=== PATIENT | male | born 1960 | race Caucasian/White ===

== ENCOUNTER 2016-11-25 12:45 | Inpatient (IN) ==
--- NOTE | 2016-11-25 12:50 | Emergency Department Note ---
Disposition Clinical Impression: Thrombocythemia, Cirrhosis, Ascites, Peripheral edema, COPD (chronic obstructive pulmonary disease), Hypoxemia, Diabetes, Hyperkalemia, Tachycardia Disposition: Admitted As Inpatient Referrals: Frank Jeong CNP [Primary Care Provider] - Forms: ED Satisfaction Letter General Adult HPI - General Chief complaint: ED Shortness of Breath/Dyspnea Stated complaint: " Low oxygen" Time Seen by Provider: 11/25/16 12:48 - History of Present Illness HPI Narrative: 66-year-old male with a history of COPD and a 3 L home oxygen requirement presents to the ED from outpatient testing, he was scheduled for a paracentesis but they realized his oxygen saturation was 76% so they sent him to the ED. The patient has a history of type 1 diabetes COPD as well as liver failure. He was going to undergo his first paracentesis today. The patient describes increasing dyspnea over the last few days. No chest pain or coughing of blood he is not anticoagulated. He has had lower extremity edema as well as abdominal swelling. There is no history of lilia abdominal pain. No fever. No difficulty moving the arms or legs independently. Bilateral lower extremity edema as described. There is no history of confusion no unilateral arm or leg weakness or numbness. No history of acute back pain. Low oxygen saturations with generalized swelling is reported as noted. - Related Data Home Medications Medication Instructions Recorded Confirmed Omeprazole 20 mg PO DAILY 11/13/15 11/25/16 metFORMIN [Glucophage] 1,000 mg PO BIDWM 01/02/16 11/25/16 Albuterol Sulfate [Ventolin Hfa] 1 puff IH Q4-6H PRN 10/17/16 11/25/16 Clotrimazole/Betameth Dip CRM 1 appl TP BID PRN 10/17/16 11/25/16 [Lotrisone CRM] Furosemide [Lasix] 40 mg PO DAILY 10/17/16 11/25/16 Metoprolol Succinate 100 mg PO DAILY 10/17/16 11/25/16 Budesonide/Formoterol 160/4.5 2 puff IH BIDR 11/25/16 11/25/16 [Symbicort 160/4.5] Gabapentin [Neurontin] 300 mg PO TID 11/25/16 11/25/16 Oxygen 3 l .ROUTE CONT 06/23/17 06/23/17 Previous Rx's Medication Instructions Recorded Aspirin 81 mg PO DAILY tab.chew 10/16/15 Spironolactone [Aldactone] 50 mg PO DAILY #30 tablet 01/12/16 DiphenhydraMINE [Benadryl] 1 tab PO HS PRN #20 capsule 02/03/16 Hydrocortisone Acetate 1 appl TP TID PRN #28 gm 02/18/16 [Hydrocortisone] Allergies Allergy/AdvReac Type Severity Reaction Status Date / Time No Known Allergies Allergy Verified 10/17/16 15:02 All systems ED: reviewed and negative except as stated. Past Medical History - Past Medical History Medical history: Reports: cirrhosis, CHF, diabetes, hypertension Surgical history: Reports: other Psychiatric history: Reports: no psych history - Social History Smoking Status: Current every day smoker Smokeless Tobacco Status: No Alcohol use: Reports: none Drug use: Reports: none Physical Exam - General Limitations: no limitations General appearance: alert, in no apparent distress - Head Head exam: atraumatic, normocephalic, normal inspection - Eye Eye exam: Present: normal appearance, PERRL, EOMI. Absent: scleral icterus, conjunctival injection, nystagmus, miosis, mydriasis, periorbital swelling - ENT ENT exam: normal exam, normal oropharynx, mucous membranes moist, TM's normal bilaterally, normal external ear exam - Neck Neck exam: Present: normal inspection, full ROM, trachea midline. Absent: tenderness - Chest Chest inspection: Present: normal inspection, symmetric chest wall rise. Absent : tenderness - Respiratory Respiratory exam: Present: prolonged expiratory phase. Absent: normal lung sounds bilaterally, respiratory distress, wheezes, accessory muscle use - Cardiovascular Cardiovascular exam: Present: regular rate, normal rhythm, normal heart sounds - Abdominal Exam Abdominal exam: Present: distention, normal bowel sounds, ascites, other ( Diffuse erythema over the abdomen. A crepitance or blistering.). Absent: guarding, rebound, rigidity, trauma, pulsatile mass - Extremities Exam Extremities exam: Present: normal inspection, full ROM, normal capillary refill , pedal edema, other (Bilateral lower extremity edema and erythema.). Absent: tenderness, calf tenderness - Expanded Lower Extremity Exam Neurovascular/Tendon exam: Present: normal capillary refill. Absent: motor deficit, sensory deficit, tendon deficit, extremity cold to touch, pallor - Back Exam Back exam: Present: normal inspection, full ROM. Absent: tenderness, CVA tenderness (R), CVA tenderness (L), vertebral tenderness - Neurological Exam Neurological exam: Present: alert, oriented X3, CN II-XII intact. Absent: motor sensory deficit - Psychiatric Psychiatric exam: Present: normal affect, normal mood - Skin Skin exam: Present: warm, dry, intact, normal color. Absent: rash, cyanosis, diaphoresis, erythema, pallor, mottled Course Vital Signs Temperature 97.6 F 11/25/16 12:49 Pulse Rate 114 11/25/16 12:49 Respiratory Rate 22 11/25/16 12:49 Blood Pressure 134/88 11/25/16 12:49 O2 Sat by Pulse Oximetry 88 11/25/16 12:49 Temperature 97.6 F 11/25/16 12:49 Pulse Rate 111 11/25/16 14:12 Respiratory Rate 22 11/25/16 14:12 Blood Pressure 141/96 11/25/16 14:12 O2 Sat by Pulse Oximetry 91 11/25/16 14:12 Oxygen Delivery Oxygen Delivery Nasal Cannula Medical Decision Making - MDM Narrative Medical decision making narrative: The patient has a 3 L oxygen requirement at home secondary to COPD. His oxygen saturations in the outpatient setting were 76%. He was given a DuoNeb here in the ED as well as Solu-Medrol. Nitropaste and Lasix were also ordered. The patient was initially tachycardic. He seems to have significant edema probably secondary to ascites. No evidence of lilia pleural effusion. The patient does have erythema of the lower extremities and abdominal wall probably secondary to chronic skin inflammation versus overt cellulitis. His white count is normal his lactic acid is negative. CRP slightly elevated. Blood cultures were sent. Oxygen supplied in the ED. The interventional radiologist was aware of the patient's condition from the outpatient center and came to the ED and evaluated the patient for ascites, they did not perform paracentesis in the ER. The patient was placed on oxygen by mask in the ED 6 L. He was able to maintain oxygen saturations above 90. Did not appear to be in respiratory distress. He remained persistently tachycardic. As a precaution, Levaquin was given. Blood cultures were sent. Given the patient's significant hypoxemia and multiple comorbidities including COPD, cirrhosis, and CHF, I thought it be appropriate to admit the patient to the hospital. I discussed case with the hospitalist on- call who has accepted the patient to their care. We reviewed the case and both feel that a CTA of the chest as well as CT abdomen would be reasonable to evaluate for acute pulmonary or vascular pathology, or intra-abdominal pathology. The patient's skin is somewhat erythematous on the abdomen and legs. This is likely inflammatory skin change versus cellulitis because it is bilateral. The patient's skin color changes have been present for about a month per his female dev technical mgr. The patient is pending admission. - Lab Data Lab results reviewed: Yes I reviewed the patient's lab results. Result diagrams: 11/25/16 13:20 11/25/16 13:20 Lab Results 11/25/16 11/25/16 11/25/16 Range/Units 12:57 13:20 13:20 WBC 6.9 (4.3-11.1) K/mcL RBC 7.56 H (4.19-5.50) M/mcL Hgb 17.6 H (12.9-16.9) g/dL Hct 66.3 H (37.5-50.1) % MCV 87.7 (83.0-100.0) fL MCH 23.3 L (28.0-33.3) pg MCHC 26.5 L (31.6-35.5) g/dL RDW 22.9 H (11.5-14.5) % Plt Count 140 (140-400) K/mcL MPV 10.1 (9.4-12.4) fL Immature Gran % 0.4 (0-4) % Seg Neutrophils % 66.4 % Lymphocytes % 17.0 % Monocytes % 13.8 % Eosinophils % 1.4 % Basophils % 1.0 % Neutrophils # 4.6 (1.6-8.9) K/mcL Lymphocytes # 1.2 (0.6-4.6) K/mcL Monocytes # 1.0 (0.0-1.3) K/mcL Eosinophils # 0.1 (0.0-0.6) K/mcL Basophils # 0.1 (0.0-0.2) K/mcL Platelet Estimate Normal (Normal) Polychromasia 1+ A (Not Present) Hypochromasia Present A (Not Present) Anisocytosis 2+ A (Not Present) PT (9.4-12.1) Seconds INR APTT (26.0-36.0) Seconds Sodium 136 (136-145) mEq/L Potassium 5.4 H (3.5-4.5) mEq/L Chloride 97 L (98-109) mEq/L Carbon Dioxide 25 (19-29) mEq/L BUN 15 (8-26) mg/dL Creatinine 1.01 (0.72-1.25) mg/dL Est GFR ( Amer) > 60 (> 60) Est GFR (Non-Af Amer) > 60 (> 60) BUN/Creatinine Ratio 15 (6-26) Glucose 84 (70-99) mg/dL POC Glucose 83 (58-89) Calculated Osmolality 282 (280-300) Lactic Acid (0.5-2.2) mmol/L Calcium 8.9 (8.6-10.8) mg/dL Total Bilirubin 1.4 H (0.2-1.2) mg/dL Direct Bilirubin 0.8 H (0.0-0.5) mg/dL Indirect Bilirubin 0.6 (0.0-1.2) mg/dL AST 17 (5-34) Units/L ALT 6 (0-55) Units/L Alkaline Phosphatase 92 (38-126) Units/L Troponin I (0-0.03) ng/mL C-Reactive Protein 29 H (Less than 5) mg/L Serum Total Protein 7.1 (6.0-8.3) g/dL Albumin 3.3 L (3.5-5.0) g/dL Globulin 3.8 H (2.4-3.5) g/dL Albumin/Globulin Ratio 0.9 L (1.1-2.2) Lipase 36 (8-78) Units/L Beta-Hydroxybutyric Acd (0.02-0.27) mmol/L Urine Color (Yellow) Urine Clarity (Clear) Urine pH (5.0-8.0) pH Units Ur Specific Butler (1.010-1.025) Urine Protein (Neg-Trace) mg/dL Urine Glucose (UA) (Normal) mg/dL Urine Ketones (Negative) mg/dL Urine Blood (Negative) Urine Nitrite (Negative) Urine Bilirubin (Negative) Urine Urobilinogen (Normal) mg/dL Ur Leukocyte Esterase (Negative) Urine Microscopic RBC (0-3) per hpf Urine Microscopic WBC (0-3) per hpf Ur Squamous Epith Cells (None-Few) per lpf Urine Bacteria (None-Few) per hpf Hyaline Casts (None-Few) per lpf Ur Culture Indicated? (NO) 11/25/16 11/25/16 11/25/16 Range/Units 13:20 13:20 13:20 WBC (4.3-11.1) K/mcL RBC (4.19-5.50) M/mcL Hgb (12.9-16.9) g/dL Hct (37.5-50.1) % MCV (83.0-100.0) fL MCH (28.0-33.3) pg MCHC (31.6-35.5) g/dL RDW (11.5-14.5) % Plt Count (140-400) K/mcL MPV (9.4-12.4) fL Immature Gran % (0-4) % Seg Neutrophils % % Lymphocytes % % Monocytes % % Eosinophils % % Basophils % % Neutrophils # (1.6-8.9) K/mcL Lymphocytes # (0.6-4.6) K/mcL Monocytes # (0.0-1.3) K/mcL Eosinophils # (0.0-0.6) K/mcL Basophils # (0.0-0.2) K/mcL Platelet Estimate (Normal) Polychromasia (Not Present) Hypochromasia (Not Present) Anisocytosis (Not Present) PT 13.2 H (9.4-12.1) Seconds INR 1.2 APTT 27.1 (26.0-36.0) Seconds Sodium (136-145) mEq/L Potassium (3.5-4.5) mEq/L Chloride (98-109) mEq/L Carbon Dioxide (19-29) mEq/L BUN (8-26) mg/dL Creatinine (0.72-1.25) mg/dL Est GFR ( Amer) (> 60) Est GFR (Non-Af Amer) (> 60) BUN/Creatinine Ratio (6-26) Glucose (70-99) mg/dL POC Glucose (58-89) Calculated Osmolality (280-300) Lactic Acid 1.1 (0.5-2.2) mmol/L Calcium (8.6-10.8) mg/dL Total Bilirubin (0.2-1.2) mg/dL Direct Bilirubin (0.0-0.5) mg/dL Indirect Bilirubin (0.0-1.2) mg/dL AST (5-34) Units/L ALT (0-55) Units/L Alkaline Phosphatase (38-126) Units/L Troponin I 0.02 (0-0.03) ng/mL C-Reactive Protein (Less than 5) mg/L Serum Total Protein (6.0-8.3) g/dL Albumin (3.5-5.0) g/dL Globulin (2.4-3.5) g/dL Albumin/Globulin Ratio (1.1-2.2) Lipase (8-78) Units/L Beta-Hydroxybutyric Acd (0.02-0.27) mmol/L Urine Color (Yellow) Urine Clarity (Clear) Urine pH (5.0-8.0) pH Units Ur Specific Butler (1.010-1.025) Urine Protein (Neg-Trace) mg/dL Urine Glucose (UA) (Normal) mg/dL Urine Ketones (Negative) mg/dL Urine Blood (Negative) Urine Nitrite (Negative) Urine Bilirubin (Negative) Urine Urobilinogen (Normal) mg/dL Ur Leukocyte Esterase (Negative) Urine Microscopic RBC (0-3) per hpf Urine Microscopic WBC (0-3) per hpf Ur Squamous Epith Cells (None-Few) per lpf Urine Bacteria (None-Few) per hpf Hyaline Casts (None-Few) per lpf Ur Culture Indicated? (NO) 11/25/16 11/25/16 Range/Units 13:20 14:22 WBC (4.3-11.1) K/mcL RBC (4.19-5.50) M/mcL Hgb (12.9-16.9) g/dL Hct (37.5-50.1) % MCV (83.0-100.0) fL MCH (28.0-33.3) pg MCHC (31.6-35.5) g/dL RDW (11.5-14.5) % Plt Count (140-400) K/mcL MPV (9.4-12.4) fL Immature Gran % (0-4) % Seg Neutrophils % % Lymphocytes % % Monocytes % % Eosinophils % % Basophils % % Neutrophils # (1.6-8.9) K/mcL Lymphocytes # (0.6-4.6) K/mcL Monocytes # (0.0-1.3) K/mcL Eosinophils # (0.0-0.6) K/mcL Basophils # (0.0-0.2) K/mcL Platelet Estimate (Normal) Polychromasia (Not Present) Hypochromasia (Not Present) Anisocytosis (Not Present) PT (9.4-12.1) Seconds INR APTT (26.0-36.0) Seconds Sodium (136-145) mEq/L Potassium (3.5-4.5) mEq/L Chloride (98-109) mEq/L Carbon Dioxide (19-29) mEq/L BUN (8-26) mg/dL Creatinine (0.72-1.25) mg/dL Est GFR ( Amer) (> 60) Est GFR (Non-Af Amer) (> 60) BUN/Creatinine Ratio (6-26) Glucose (70-99) mg/dL POC Glucose (58-89) Calculated Osmolality (280-300) Lactic Acid (0.5-2.2) mmol/L Calcium (8.6-10.8) mg/dL Total Bilirubin (0.2-1.2) mg/dL Direct Bilirubin (0.0-0.5) mg/dL Indirect Bilirubin (0.0-1.2) mg/dL AST (5-34) Units/L ALT (0-55) Units/L Alkaline Phosphatase (38-126) Units/L Troponin I (0-0.03) ng/mL C-Reactive Protein (Less than 5) mg/L Serum Total Protein (6.0-8.3) g/dL Albumin (3.5-5.0) g/dL Globulin (2.4-3.5) g/dL Albumin/Globulin Ratio (1.1-2.2) Lipase (8-78) Units/L Beta-Hydroxybutyric Acd 0.31 H (0.02-0.27) mmol/L Urine Color Yellow (Yellow) Urine Clarity Clear (Clear) Urine pH 6.0 (5.0-8.0) pH Units Ur Specific Butler 1.012 (1.010-1.025) Urine Protein 100 H (Neg-Trace) mg/dL Urine Glucose (UA) Normal (Normal) mg/dL Urine Ketones Negative (Negative) mg/dL Urine Blood Negative (Negative) Urine Nitrite Negative (Negative) Urine Bilirubin Negative (Negative) Urine Urobilinogen 2.0 H (Normal) mg/dL Ur Leukocyte Esterase Negative (Negative) Urine Microscopic RBC 0-3 (0-3) per hpf Urine Microscopic WBC 0-3 (0-3) per hpf Ur Squamous Epith Cells None Seen (None-Few) per lpf Urine Bacteria None Seen (None-Few) per hpf Hyaline Casts None Seen (None-Few) per lpf Ur Culture Indicated? NO (NO) - Radiology Data Radiology results reviewed: Yes I reviewed the patient's radiology results.
[2016-11-25] MEDS ORDERED: Furosemide 80 MG in 0.9 % Sodium Chloride 50 ML IVPB ONE (13:09)
[2016-11-25] MEDS ORDERED: methylPREDNISolone 125 MG/2 ML VIAL IVP ONE (13:09)
[2016-11-25] MEDS ORDERED: Ipratropium/Albuterol Neb 3 ML IH ONE (13:09)
[2016-11-25 13:38] LABS: Basophils # 0.1 K/mcL (0.0-0.2); Eosinophils # 0.1 K/mcL (0.0-0.6); Eosinophils % 1.4 %; Hematocrit 66.3 % (37.5-50.1); Hemoglobin 17.6 g/dL (12.9-16.9); Immature Granulocytes % 0.4 % (0-4); Lymphocytes # 1.2 K/mcL (0.6-4.6); Mean Corpuscular HGB Conc 26.5 g/dL (31.6-35.5); Mean Corpuscular Hemoglobin 23.3 pg (28.0-33.3); Mean Corpuscular Volume 87.7 fL (83.0-100.0); Mean Platelet Volume 10.1 fL (9.4-12.4); Monocytes % 13.8 %; Neutrophils # 4.6 K/mcL (1.6-8.9); Platelet Count 140 K/mcL (140-400); Red Blood Count 7.56 M/mcL (4.19-5.50); Red Cell Distribution Width 22.9 % (11.5-14.5); Segmented Neutrophils % 66.4 %
[2016-11-25 13:40] LABS: Anisocytosis 2+ (Not Present); Hypochromasia Present (Not Present); Platelet Estimate Normal (Normal); Polychromasia 1+ (Not Present)
[2016-11-25] MEDS: Nitroglycerin 1 INCH/GM PACKET TP ONE ×2 (13:42→14:29)
[2016-11-25 13:48] LABS: INR 1.2
[2016-11-25 13:49] LABS: Prothrombin Time 13.2 Seconds (9.4-12.1)
[2016-11-25 13:50] LABS: Activated Partial Thrombo Time 27.1 Seconds (26.0-36.0)
[2016-11-25 14:33] LABS: Bilirubin,Urine Negative (Negative); Blood,Urine Negative (Negative); Clarity,Urine Clear (Clear); Color,Urine Yellow (Yellow); Glucose,Urine (UA) Normal (Normal); Ketones,Urine Negative (Negative); Leukocyte Esterase,Urine Negative (Negative); Nitrite,Urine Negative (Negative); Protein,Urine 100 mg/dL (Neg-Trace); Specific Gravity,Urine 1.012 (1.010-1.025)
[2016-11-25 14:39] LABS: Bacteria,Urine None Seen per hpf (None-Few); Hyaline Casts,Urine None Seen per lpf (None-Few); RBC,Urine 0-3 per hpf (0-3); Squamous Epithelial Cell,Urine None Seen per lpf (None-Few); WBC,Urine 0-3 per hpf (0-3)
[2016-11-25 15:34] LABS: Alanine Aminotransferase 6 Units/L (0-55); Albumin 3.3 g/dL (3.5-5.0); Albumin/Globulin Ratio 0.9 (1.1-2.2); Alkaline Phosphatase 92 Units/L (38-126); Aspartate Amino Transferase 17 Units/L (5-34); BUN/Creatinine Ratio 15 (6-26); Bilirubin,Direct 0.8 mg/dL (0.0-0.5); Bilirubin,Indirect 0.6 mg/dL (0.0-1.2); Bilirubin,Total 1.4 mg/dL (0.2-1.2); Blood Urea Nitrogen 15 mg/dL (8-26); C-Reactive Protein 29 mg/L (Less than 5); Calcium 8.9 mg/dL (8.6-10.8); Carbon Dioxide 25 mEq/L (19-29); Chloride 97 mEq/L (98-109); Globulin 3.8 g/dL (2.4-3.5); Glucose 84 mg/dL (70-99); Lipase 36 Units/L (8-78); Osmolality,Calculated 282 (280-300); Potassium 5.4 mEq/L (3.5-4.5); Sodium 136 mEq/L (136-145); Total Protein 7.1 g/dL (6.0-8.3); eGFR For African Americans > 60 (> 60); eGFR For Non-African Americans > 60 (> 60)
--- NOTE | 2016-11-25 16:06 | IR Progress Note ---
<Bebo Villalpando - Last Filed: 11/25/16 16:05> Vital Signs: Vital Signs/O2 Sat, Most Current Temp Pulse Resp BP Pulse Ox 97.6 F 111 22 141/96 91 11/25/16 12:49 11/25/16 14:12 11/25/16 14:12 11/25/16 14:12 11/25/16 14:12 Recent Labs: Lab Results 11/25/16 11/25/16 11/25/16 13:20 13:20 13:20 WBC 6.9 RBC 7.56 H Hgb 17.6 H Hct 66.3 H MCV 87.7 MCH 23.3 L MCHC 26.5 L RDW 22.9 H Plt Count 140 MPV 10.1 Neutrophils # 4.6 Lymphocytes # 1.2 Monocytes # 1.0 Eosinophils # 0.1 Basophils # 0.1 Sodium 136 Potassium 5.4 H Chloride 97 L Carbon Dioxide 25 BUN 15 Creatinine 1.01 Est GFR ( Amer) > 60 Est GFR (Non-Af Amer) > 60 BUN/Creatinine Ratio 15 Glucose 84 Lactic Acid 1.1 Calcium 8.9 Assessment and Plan Scanned with u/s in ED to assess for paracentesis. Very little fluid in RLQ, and perihepatic in location sonographically. Therefore, no para done. Pt to have additional imaging per ER staff, and pt is being admitted. IR will hold off for now. Tong Villalpando MD <Lowell Waite - Last Filed: 11/25/16 17:08> Vital Signs: Vital Signs/O2 Sat, Most Current Temp Pulse Resp BP Pulse Ox 97.6 F 111 22 141/96 91 11/25/16 12:49 11/25/16 14:12 11/25/16 14:12 11/25/16 14:12 11/25/16 14:12 Recent Labs: Lab Results 11/25/16 11/25/16 11/25/16 13:20 13:20 13:20 WBC 6.9 RBC 7.56 H Hgb 17.6 H Hct 66.3 H MCV 87.7 MCH 23.3 L MCHC 26.5 L RDW 22.9 H Plt Count 140 MPV 10.1 Neutrophils # 4.6 Lymphocytes # 1.2 Monocytes # 1.0 Eosinophils # 0.1 Basophils # 0.1 Sodium 136 Potassium 5.4 H Chloride 97 L Carbon Dioxide 25 BUN 15 Creatinine 1.01 Est GFR ( Amer) > 60 Est GFR (Non-Af Amer) > 60 BUN/Creatinine Ratio 15 Glucose 84 Lactic Acid 1.1 Calcium 8.9
[2016-11-25] MEDS ORDERED: Levofloxacin 750 MG/150 ML 750 MG/150 ML BAG IVPB ONE (16:28)
[2016-11-25] MEDS ORDERED: Naloxone 0.4 MG/ML INJ IVP PRN (17:16)
[2016-11-25] MEDS ORDERED: Acetaminophen 325 MG TABLET PO PRN (17:16)
[2016-11-25] MEDS ORDERED: Ipratropium/Albuterol Neb 3 ML IH PRN (17:21)
[2016-11-25] MEDS ORDERED: D5% in Water 1,000 ML IVC PRN (17:26)
[2016-11-25] MEDS ORDERED: *HR* Dextrose 50 % in Water (Syg) 50 ML SYRINGE IVP PRN (17:26)
[2016-11-25] MEDS ORDERED: Dextrose Gel 15 GM PO PRN ×2 (17:26)
[2016-11-25] MEDS ORDERED: NON-FORMULARY MEDICATION 1 EACH EACH (Oxygen [Oxygen] 3 L) SCH (17:30)
--- NOTE | 2016-11-25 17:34 | Internal Med History&Physical ---
Date of Encounter: 11/25/16 Time of Encounter: 17:27 Assessment and Plan (1) COPD (chronic obstructive pulmonary disease) Current visit: Yes Status: Acute Likely COPD exacerbation. Plan: -IV antibiotics: Levofloxacin 750 mg every 24 hours. Blood cultures drawn in the emergency room. -IV steroids: Methyl prednisone 40 mg 3 times a day. - Bronchodilators scheduled dose as well as when necessary. I have spoken in person with the radiologist. Patient does not have pulmonary embolism. He has very little fluid in his abdomen which is unable to aspirate by interventional radiology. Qualifiers: COPD type: unspecified COPD Qualified Code(s): J44.9 - Chronic obstructive pulmonary disease, unspecified (2) Congestive heart failure Current visit: No Status: Acute Likely diastolic heart failure. Last echo: October 2015: Ejection fraction 65%, normal left ventricular size, Plan: IV Lasix 40 mg twice a day. Monitor potassium. Echocardiogram tomorrow. We will cycle troponin. Qualifiers: Congestive heart failure type: unspecified congestive heart failure type Congestive heart failure chronicity: unspecified congestive heart failure chronicity Qualified Code(s): I50.9 - Heart failure, unspecified (3) Cirrhosis Current visit: Yes Status: Acute MELD score: 13 Child-Aquino : B We will continue Lasix 40 mg twice a day. We will hold his Spiriva and Aldactone at this point because patient's potassium is 5.4. We will recheck labs tomorrow morning. History the patient is not previously worked up by liver transplant team/ tree warden, we will get opinion from them. Qualifiers: Hepatic cirrhosis type: unspecified hepatic cirrhosis Ascites presence: with ascites Qualified Code(s): K74.60 - Unspecified cirrhosis of liver (4) Peripheral edema Current visit: Yes Status: Acute Likely secondary to the worsening cirrhosis/heart failure (5) DVT prophylaxis Current visit: Yes Status: Acute heparin Medical decision making: This patient has a moderate to severe risk of worsening in spite of being on appropriate treatment. Patient has a multiple comorbid issues. Patient might need a transfer to tertiary care center if he worsens clinically Internal Medicine - H&P: HPI Chief complaint: SOB Admitted From: Emergency Dept Plans for Post Hospital Care: Home History of present illness: PCP; Frank Jeong Brief PMH: COPD, CHF, DM, Cirrhosis and morbid obesity. History of present illness: 56-year-old gentleman, came to this hospital for a scheduled paracentesis. Noted that patient's oxygen saturation was extremely low. Patient's oxygen saturation in the emergency room was 76% on a Ventimask. Patient was complaining of worsening shortness of breath along with cough and change in his color of the sputum. Patient denies chest pain, dizziness, diarrhea or abdominal pain. Patient was evaluated in the emergency department. Patient denies leg pain but patient has a worsening peripheral edema. There is no history of any weakness or numbness, no history of acute back pain. Course in the emergency room: Patient was evaluated in the emergency room.Basic labs were drawn.Patient underwent CT scan of chest and abdomen and pelvis. Reason for admission: COPD exacerbation, worsening abdominal girth. Family history: No significant family comorbidities Past Med Surg Social Fam HX - Past Medical History Medical history: cirrhosis, CHF, diabetes, hypertension Psychiatric history: no psych history - Past Surgical History Surgical History: other - Social History Smoking Status: Current every day smoker Smokeless Tobacco Status: No Alcohol use: none Drug use: none Internal Medicine - H&P: Meds Aspirin 81 mg PO DAILY tab.chew 10/16/15 [Rx] Omeprazole 20 mg PO DAILY 11/13/15 [History] metFORMIN [Glucophage] 1,000 mg PO BIDWM 01/02/16 [History] Spironolactone [Aldactone] 50 mg PO DAILY #30 tablet 01/12/16 [Rx] DiphenhydraMINE [Benadryl] 1 tab PO HS PRN #20 capsule 02/03/16 [Rx] Hydrocortisone Acetate [Hydrocortisone] 1 appl TP TID PRN #28 gm 02/18/16 [Rx] Albuterol Sulfate [Ventolin Hfa] 1 puff IH Q4-6H PRN 10/17/16 [History] Clotrimazole/Betameth Dip CRM [Lotrisone CRM] 1 appl TP BID PRN 10/17/16 [ History] Furosemide [Lasix] 40 mg PO DAILY 10/17/16 [History] Metoprolol Succinate 100 mg PO DAILY 10/17/16 [History] Budesonide/Formoterol 160/4.5 [Symbicort 160/4.5] 2 puff IH BIDR 11/25/16 [ History] Gabapentin [Neurontin] 300 mg PO TID 11/25/16 [History] Oxygen 3 l .ROUTE CONT 11/25/16 [History] Allergies No Known Allergies Allergy (Verified 10/17/16 15:02) All Systems PM: A 10-system review of systems was performed and is negative for pertinent findings except as documented above in the HPI. - Constitutional Constitutional: no chills, no fever(s), no night sweats - EENT Eyes: no change in vision, no discharge, no pain, no photophobia Ears: no ear discharge, no ear pain, no tinnitus Nose, mouth and throat: dysphagia, no nasal discharge, no neck pain, no sore throat - Cardiovascular Cardiovascular ROS IM: diaphoresis, dyspnea, lightheadedness, palpitations, no chest pain, no syncope - Respiratory Respiratory: wheezing, stridor, change in phlegm color, no cough, no dyspnea, no excessive phlegm production - Gastrointestinal Gastrointestinal: no abdominal pain, no diarrhea, no hematemesis, no hematochezia, no melena, no nausea, no vomiting - Musculoskeletal Musculoskeletal ROS IM: no numbness, no tingling - Integumentary Integumentary IM: no rash, no unusual bruising - Neurological Neurological ROS: no confusion, no convulsions, no focal weakness, no numbness, no tingling, no tremor(s) - Hematologic/Lymphatic Hematologic/Lymphatic: no easy bruising - Constitutional Vitals: Temp Pulse Resp BP Pulse Ox 97.6 F 111 18 157/99 91 11/25/16 12:49 11/25/16 14:12 11/25/16 17:16 11/25/16 17:16 11/25/16 14:12 General appearance: Present: A&O X 3, morbidly obese, pleasant, answers questions appropriately - Head Head exam: Present: atraumatic, normocephalic - Eye Eye exam: Present: PERRL, conjuntiva pink, sclera anicteric Pupils: Present: PERRL - Neck Neck exam general surgery: Present: supple, trachea midline. Absent: lymphadenopathy - Respiratory Respiratory exam: Present: CTAB. Absent: accessory muscle use, rales, rhonchi, wheezes - Cardiovascular Cardiovascular exam: Present: RRR, +S1, +S2. Absent: diastolic murmur, gallop, rubs, systolic murmur - GI/Abdominal GI/Abdominal exam: Present: normal bowel sounds, soft, no peritoneal signs. Absent: distended, tenderness - Extremities Exam Extremities exam: Present: warm, radial pulses palpable and symetrical. Absent : calf tenderness, cyanotic, pedal edema - Neurological Exam Neurological exam: Present: CN II-XII intact, oriented X3, no focal deficits. Absent: pronater drift, facial droop, speech deficit - Skin Skin exam: Present: dry, intact Internal Med - H&P Results - Labs CBC & Chem 7: 11/25/16 13:20 11/25/16 13:20
[2016-11-25] MEDS: Gabapentin 300 MG CAPSULE PO SCH (20:45)
[2016-11-25] MEDS: Furosemide 40 MG/4 ML VIAL IVP SCH (20:46)
[2016-11-26] MEDS: MethylPREDNISolone 40 MG/ML VIAL IVP SCH ×2 (00:30→08:19)
[2016-11-26] MEDS: *HR* Heparin 5,000 UNIT/ML VIAL SQ SCH ×2 (00:32→08:21)
[2016-11-26 02:00] LABS: Immature Granulocytes % 1.1 % (0-4)
[2016-11-26 02:01] LABS: Basophils % 0.3 %; Hemoglobin 17.9 g/dL (12.9-16.9); Lymphocytes # 0.3 K/mcL (0.6-4.6); Lymphocytes % 4.7 %; Mean Corpuscular HGB Conc 25.8 g/dL (31.6-35.5); Mean Corpuscular Hemoglobin 23.2 pg (28.0-33.3); Monocytes # 0.1 K/mcL (0.0-1.3); Monocytes % 2.2 %; Nucleated Red Blood Cells 0.8 /100 WBC (0); Platelet Count 144 K/mcL (140-400); Red Blood Count 7.72 M/mcL (4.19-5.50); Red Cell Distribution Width 22.8 % (11.5-14.5); Segmented Neutrophils % 91.7 %
[2016-11-26 02:18] LABS: BUN/Creatinine Ratio 12 (6-26); Blood Urea Nitrogen 14 mg/dL (8-26); Calcium 9.3 mg/dL (8.6-10.8); Carbon Dioxide 33 mEq/L (19-29); Chloride 92 mEq/L (98-109); Glucose 150 mg/dL (70-99); Magnesium 1.6 mg/dL (1.6-2.6); Osmolality,Calculated 285 (280-300); Sodium 136 mEq/L (136-145); eGFR For African Americans > 60 (> 60); eGFR For Non-African Americans > 60 (> 60)
[2016-11-26 02:19] LABS: Alanine Aminotransferase 7 Units/L (0-55); Albumin 3.7 g/dL (3.5-5.0); Albumin/Globulin Ratio 0.8 (1.1-2.2); Alkaline Phosphatase 111 Units/L (38-126); Aspartate Amino Transferase 19 Units/L (5-34); Bilirubin,Total 1.6 mg/dL (0.2-1.2); Chol/HDL Ratio 5.6 (0-4.9); Cholesterol 191 mg/dL (< 200); Globulin 4.4 g/dL (2.4-3.5); HDL Cholesterol 34 mg/dL (40-59); LDL Cholesterol,Calculated 138 mg/dL (0-99); Phosphorous 5.9 mg/dL (2.3-4.7); Total Protein 8.1 g/dL (6.0-8.3); Triglycerides 95 mg/dL (< 150)
[2016-11-26 02:22] LABS: Potassium 6.4 mEq/L (3.5-4.5)
[2016-11-26 02:36] LABS: Hematocrit 69.5 % (37.5-50.1); Neutrophils # 5.9 K/mcL (1.6-8.9)
[2016-11-26 02:48] LABS: Anisocytosis 2+ (Not Present); Hypochromasia Present (Not Present); Platelet Estimate Normal (Normal); Polychromasia 1+ (Not Present)
[2016-11-26 06:49] VITALS: BP 125/66
[2016-11-26] MEDS: Furosemide 40 MG/4 ML VIAL IVP SCH (08:19)
[2016-11-26] MEDS ORDERED: Aspirin 81 MG TAB.CHEW PO SCH (09:00)
[2016-11-26] MEDS ORDERED: Metoprolol XL (24 HR) Succ 50 MG TAB.ER.24H PO SCH (09:00)
[2016-11-26] MEDS ORDERED: Levofloxacin 750 MG/150 ML 750 MG/150 ML BAG IVPB SCH (09:00)
[2016-11-26] MEDS ORDERED: Lactulose Oral Soln 20 GM/30 ML UDC PO ONE (09:12)
[2016-11-26] MEDS ORDERED: Perflutren Lipid Microsphere 1.3 ML in 0.9 % Sodium Chloride 8.7 ML IVP ONE (10:26)
--- NOTE | 2016-11-26 12:50 | Discharge Summary ---
Date of Encounter: 11/26/16 Time of Encounter: 12:47 - Discharge Diagnosis (1) Decompensated hepatic cirrhosis Priority: Primary Status: Acute (2) COPD (chronic obstructive pulmonary disease) Priority: Primary Status: Acute Qualifiers: COPD type: unspecified COPD Qualified Code(s): J44.9 - Chronic obstructive pulmonary disease, unspecified (3) Congestive heart failure Priority: Secondary Status: Acute Qualifiers: Congestive heart failure type: unspecified congestive heart failure type Congestive heart failure chronicity: unspecified congestive heart failure chronicity Qualified Code(s): I50.9 - Heart failure, unspecified (4) Cirrhosis Priority: Secondary Status: Acute Qualifiers: Hepatic cirrhosis type: unspecified hepatic cirrhosis Ascites presence: with ascites Qualified Code(s): K74.60 - Unspecified cirrhosis of liver (5) Peripheral edema Priority: Secondary Status: Acute (6) DVT prophylaxis Priority: Secondary Status: Acute - Discharge Medications Home Medications: Aspirin 81 mg PO DAILY tab.chew 10/16/15 [Rx] Omeprazole 20 mg PO DAILY 11/13/15 [History] metFORMIN [Glucophage] 1,000 mg PO BIDWM 01/02/16 [History] Spironolactone [Aldactone] 50 mg PO DAILY #30 tablet 01/12/16 [Rx] DiphenhydraMINE [Benadryl] 1 tab PO HS PRN #20 capsule 02/03/16 [Rx] Hydrocortisone Acetate [Hydrocortisone] 1 appl TP TID PRN #28 gm 02/18/16 [Rx] Albuterol Sulfate [Ventolin Hfa] 1 puff IH Q4-6H PRN 10/17/16 [History] Clotrimazole/Betameth Dip CRM [Lotrisone CRM] 1 appl TP BID PRN 10/17/16 [ History] Furosemide [Lasix] 40 mg PO DAILY 10/17/16 [History] Metoprolol Succinate 100 mg PO DAILY 10/17/16 [History] Budesonide/Formoterol 160/4.5 [Symbicort 160/4.5] 2 puff IH BIDR 11/25/16 [ History] Gabapentin [Neurontin] 300 mg PO TID 11/25/16 [History] Oxygen 3 l .ROUTE CONT 11/25/16 [History] Allergies/Adverse Reactions: Allergies No Known Allergies Allergy (Verified 10/17/16 15:02) Procedures/tests Complete & Pending: Procedures Performed prior 72 hours Category Date Time Status EV echocardiogram w enhance Routine Y 11/26/16 17:22 Completed Date of admission: 11/25/16 17:16 Primary care physician: Frank Jeong CNP Consults: 11/25/16 17:54 Consult to [employer]draulic [employer]er [CONS] Routine Reason for SW Consult: has home oxygen-dominik thinks wants home health because not home during day Discharging clinician: Denzel Quijano - Patient Status Disposition: Transfer Other Condition: Serious Functional capacity at discharge: bed bound Overall status at discharge: patient is not back to baseline - Discharge Instructions Follow Up With: Frank Jeong CNP [Primary Care Provider] - - Diet and Activity Activity: increase activity as tolerated Diet: diabetic diet Interval History: PCP; Frank Jeong Brief PMH: COPD, CHF, DM, Cirrhosis and morbid obesity. History of present illness: 56-year-old gentleman, came to this hospital for a scheduled paracentesis. Noted that patient's oxygen saturation was extremely low. Patient's oxygen saturation in the emergency room was 76% on a Ventimask. Patient was complaining of worsening shortness of breath along with cough and change in his color of the sputum. Patient denies chest pain, dizziness, diarrhea or abdominal pain. Patient was evaluated in the emergency department. Patient denies leg pain but patient has a worsening peripheral edema. There is no history of any weakness or numbness, no history of acute back pain. Course in the emergency room: Patient was evaluated in the emergency room.Basic labs were drawn.Patient underwent CT scan of chest and abdomen and pelvis. Reason for admission: COPD exacerbation, worsening abdominal girth. Hospital course: Patient was hospitalized. CT scan of the chest did not reveal any pulmonary embolism. CT chest showed basilar atelectasis. CT head did not reveal any acute hemorrhage/CVA. CT abdomen did not reveal any CT abdomen revealed minimal free fluid. Patient was started on IV antibiotics/steroids and bronchodilators. He was started on lactulose. Patient had one bowel movement. Noted that patient's MELD score is 13 and worsened from 9. HIs Child Aquino class B. patient is not alcoholic. Patient's claims that it was told that patient has fatty liver. patient had work up in [facility] and family is keen to transfer him to [facility]. I spoke with transfer center at [facility] with RN Lino meyrs transfer was accepted by Dr Nichols from [facility] hospitalist group. - Time Spent with Patient Total time spent providing and/or coordinating discharge services: - Constitutional Vitals: Temp Pulse Resp BP Pulse Ox 97.6 F 113 18 125/66 90 11/26/16 05:15 11/26/16 05:15 11/26/16 05:15 11/26/16 05:15 11/26/16 05:15 General appearance: Present: A&O X 3, morbidly obese, pleasant, answers questions appropriately - Head Head exam: Present: atraumatic, normocephalic - Eye Eye exam: Present: PERRL, conjuntiva pink, sclera anicteric Pupils: Present: PERRL - Neck Neck exam general surgery: Present: supple, trachea midline. Absent: lymphadenopathy - Respiratory Respiratory exam: Present: CTAB. Absent: accessory muscle use, rales, rhonchi, wheezes - Cardiovascular Cardiovascular exam: Present: RRR, +S1, +S2. Absent: diastolic murmur, gallop, rubs, systolic murmur - GI/Abdominal GI/Abdominal exam: Present: distended, normal bowel sounds, soft, no peritoneal signs. Absent: tenderness - Extremities Exam Extremities exam: Present: warm, radial pulses palpable and symetrical. Absent : calf tenderness, cyanotic, pedal edema - Neurological Exam Neurological exam: Present: CN II-XII intact, oriented X3, no focal deficits. Absent: pronater drift, facial droop, speech deficit - Skin Skin exam: Present: dry, intact
[2016-11-26] MEDS: Gabapentin 300 MG CAPSULE PO SCH (14:22)
[2016-11-26] MEDS: Insulin LISPRO 300 UNITS/3 ML VIAL SQ SCH ×2 (14:24→14:29)
== END 2016-11-26 16:30 | disposition other institution (70) | DRG 190 ==
LOC: EMEROO 12:45 → 2NENU 12:45
PROVIDERS: ADMIT Internal Medicine; ATTEND Internal Medicine

== ENCOUNTER 2020-11-12 23:01 | Inpatient (IN) ==
[2020-11-13 01:39] LABS: Red Cell Distribution Width 15.3 % (11.5-14.5)
[2020-11-13 01:41] LABS: Basophils # 0.1 K/mcL (0.0-0.2); Basophils % 0.6 %; Eosinophils # 0.1 K/mcL (0.0-0.6); Eosinophils % 1.7 %; Immature Granulocytes % 0.5 % (0-4); Immature Platelets 7.8 % (1.1-6.1); Lymphocytes # 1.3 K/mcL (0.6-4.6); Lymphocytes % 15.1 %; Mean Corpuscular HGB Conc 29.8 g/dL (31.6-35.5); Mean Corpuscular Hemoglobin 29.6 pg (28.0-33.3); Mean Corpuscular Volume 99.3 fL (83.0-100.0); Mean Platelet Volume 11.6 fL (9.4-12.4); Monocytes # 0.9 K/mcL (0.0-1.3); Monocytes % 10.4 %; Neutrophils # 6.1 K/mcL (1.6-8.9); Red Blood Count 5.74 M/mcL (4.19-5.50); Segmented Neutrophils % 71.7 %; White Blood Count 8.5 K/mcL (4.3-11.1)
[2020-11-13 01:43] LABS: Platelet Count 96 K/mcL (140-400)
[2020-11-13 02:23] LABS: Alanine Aminotransferase 16 Units/L (7-52); Albumin 4.1 g/dL (3.5-5.7); Albumin/Globulin Ratio 1.3 (1.1-2.2); Alkaline Phosphatase 100 Units/L (34-104); Aspartate Amino Transferase 19 Units/L (13-39); BUN/Creatinine Ratio 19 (6-26); Bilirubin,Direct 0.1 mg/dL (0.0-0.2); Bilirubin,Indirect 0.6 mg/dL (0.0-1.0); Bilirubin,Total 0.7 mg/dL (0.3-1.0); Blood Urea Nitrogen 27 mg/dL (8-23); Calcium 9.4 mg/dL (8.6-10.3); Carbon Dioxide 39 mEq/L (23-29); Chloride 91 mEq/L (98-107); Globulin 3.1 g/dL (2.4-3.5); Glucose 127 mg/dL (70-105); Osmolality,Calculated 293 (280-300); Potassium 4.2 mEq/L (3.5-5.1); Sodium 138 mEq/L (136-145); Total Protein 7.2 g/dL (6.4-8.9); eGFR For African Americans > 60 (> 60); eGFR For Non-African Americans 50 (> 60)
[2020-11-13 02:30] LABS: Troponin I < 0.03 ng/mL (< 0.04)
[2020-11-13] MEDS ORDERED: Ondansetron 4 MG/2 ML VIAL IVP PRN (05:18)
[2020-11-13] MEDS ORDERED: Naloxone 0.4 MG/ML INJ IVP PRN (05:18)
[2020-11-13] MEDS ORDERED: Melatonin 3 MG TABLET PO PRN (05:18)
[2020-11-13] MEDS ORDERED: Dextrose Gel 15 GM/37.5 ML TUBE PO PRN ×2 (05:20)
[2020-11-13] MEDS ORDERED: D5% in Water 1,000 ML IVC PRN (05:20)
[2020-11-13] MEDS ORDERED: *HR* Dextrose 50 % in Water (Vial) 50 ML VIAL IVP PRN (05:20)
[2020-11-13] MEDS ORDERED: Furosemide 40 MG/4 ML VIAL IVP ONE (06:15)
[2020-11-13 06:43] LABS: ABG Base Excess 16 mEq/L (-2 to 3); ABG HCO3 52 mEq/L (21-27); ABG Oxygen Saturation 90 % (95-98); ABG PCO2 116 mmHg (35-45); ABG PH 7.26 pH Units (7.32-7.45); ABG PO2 73 mmHg (85-104); ABG TCO2 > 50 mEq/L (20-26)
[2020-11-13 06:49] LABS: INR 1.1; Prothrombin Time 12.2 Seconds (9.4-12.1)
[2020-11-13] MEDS: Ipratropium/Albuterol Neb 3 ML IH SCH ×5 (07:47→23:44)
[2020-11-13] MEDS: Insulin LISPRO 300 UNITS/3 ML VIAL SUBQ SCH ×4 (08:22→23:56)
[2020-11-13 09:34] LABS: ABG Base Excess 15 mEq/L (-2 to 3); ABG HCO3 47 mEq/L (21-27); ABG Oxygen Saturation 91 % (95-98); ABG PCO2 86 mmHg (35-45); ABG PH 7.35 pH Units (7.32-7.45); ABG PO2 69 mmHg (85-104); ABG TCO2 50 mEq/L (20-26)
[2020-11-13] MEDS ORDERED: Albuterol 2.5 MG/3 ML NEBULIZER IH PRN (14:42)
[2020-11-13] MEDS: Aspirin 81 MG TAB.CHEW PO SCH (16:47)
[2020-11-13] MEDS: *HR* Heparin 5,000 UNIT/ML VIAL SQ SCH (17:47)
[2020-11-13] MEDS: Furosemide 40 MG TABLET PO SCH (21:07)
[2020-11-13] MEDS: Pregabalin 50 MG CAPSULE PO SCH (21:07)
[2020-11-14] MEDS: Ipratropium/Albuterol Neb 3 ML IH SCH ×7 (04:29→23:04)
[2020-11-14] MEDS: *HR* Heparin 5,000 UNIT/ML VIAL SQ SCH ×2 (06:50→17:15)
[2020-11-14] MEDS: Insulin LISPRO 300 UNITS/3 ML VIAL SUBQ SCH ×3 (06:50→17:18)
[2020-11-14] MEDS: Cholecalciferol (D-3) 1,000 UNIT (25MCG) TABLET PO SCH (09:21)
[2020-11-14] MEDS: Furosemide 40 MG TABLET PO SCH ×2 (09:21→23:13)
[2020-11-14] MEDS: Aspirin 81 MG TAB.CHEW PO SCH (09:21)
[2020-11-14] MEDS: Pregabalin 50 MG CAPSULE PO SCH ×2 (09:21→23:13)
[2020-11-14] MEDS: Multivit/Ca/Min/Fe/FA 1 TAB TABLET PO SCH (09:21)
[2020-11-14 11:47] LABS: Basophils % 0.6 %; Red Cell Distribution Width 15.5 % (11.5-14.5)
[2020-11-14 11:48] LABS: Basophils # 0.1 K/mcL (0.0-0.2); Eosinophils # 0.2 K/mcL (0.0-0.6); Eosinophils % 2.5 %; Hematocrit 54.7 % (37.5-50.1); Hemoglobin 16.8 g/dL (12.9-16.9); Immature Granulocytes % 0.4 % (0-4); Immature Platelets 7.7 % (1.1-6.1); Lymphocytes # 1.1 K/mcL (0.6-4.6); Lymphocytes % 14.1 %; Mean Corpuscular HGB Conc 30.7 g/dL (31.6-35.5); Mean Corpuscular Hemoglobin 29.8 pg (28.0-33.3); Mean Corpuscular Volume 97.2 fL (83.0-100.0); Mean Platelet Volume 10.8 fL (9.4-12.4); Monocytes # 0.8 K/mcL (0.0-1.3); Monocytes % 9.6 %; Neutrophils # 5.8 K/mcL (1.6-8.9); Platelet Count 117 K/mcL (140-400); Red Blood Count 5.63 M/mcL (4.19-5.50); Segmented Neutrophils % 72.8 %; White Blood Count 7.9 K/mcL (4.3-11.1)
[2020-11-14 12:06] LABS: BUN/Creatinine Ratio 16 (6-26); Blood Urea Nitrogen 23 mg/dL (8-23); Calcium 9.4 mg/dL (8.6-10.3); Carbon Dioxide 38 mEq/L (23-29); Chloride 90 mEq/L (98-107); Glucose 210 mg/dL (70-105); Osmolality,Calculated 288 (280-300); Potassium 4.8 mEq/L (3.5-5.1); Sodium 134 mEq/L (136-145); eGFR For African Americans > 60 (> 60); eGFR For Non-African Americans 52 (> 60)
[2020-11-14] MEDS: Insulin DETEMIR 100 UNIT/ML X5UNITS SUBQ SCH (23:13)
[2020-11-15] MEDS: Ipratropium/Albuterol Neb 3 ML IH SCH ×7 (04:13→23:34)
[2020-11-15 05:22] LABS: Basophils # 0.1 K/mcL (0.0-0.2); Basophils % 0.7 %; Eosinophils # 0.2 K/mcL (0.0-0.6); Eosinophils % 2.9 %; Hematocrit 51.8 % (37.5-50.1); Hemoglobin 15.6 g/dL (12.9-16.9); Immature Granulocytes % 0.3 % (0-4); Immature Platelets 7.3 % (1.1-6.1); Lymphocytes # 1.4 K/mcL (0.6-4.6); Lymphocytes % 20.6 %; Mean Corpuscular HGB Conc 30.1 g/dL (31.6-35.5); Mean Corpuscular Hemoglobin 29.4 pg (28.0-33.3); Mean Corpuscular Volume 97.6 fL (83.0-100.0); Mean Platelet Volume 10.3 fL (9.4-12.4); Monocytes # 0.7 K/mcL (0.0-1.3); Monocytes % 10.3 %; Neutrophils # 4.4 K/mcL (1.6-8.9); Platelet Count 102 K/mcL (140-400); Red Blood Count 5.31 M/mcL (4.19-5.50); Red Cell Distribution Width 15.6 % (11.5-14.5); Segmented Neutrophils % 65.2 %; White Blood Count 6.8 K/mcL (4.3-11.1)
[2020-11-15 05:42] LABS: BUN/Creatinine Ratio 20 (6-26); Blood Urea Nitrogen 29 mg/dL (8-23); Calcium 9.2 mg/dL (8.6-10.3); Carbon Dioxide 37 mEq/L (23-29); Chloride 95 mEq/L (98-107); Glucose 171 mg/dL (70-105); Osmolality,Calculated 298 (280-300); Potassium 4.4 mEq/L (3.5-5.1); Sodium 139 mEq/L (136-145); eGFR For African Americans > 60 (> 60); eGFR For Non-African Americans 50 (> 60)
[2020-11-15] MEDS: *HR* Heparin 5,000 UNIT/ML VIAL SQ SCH ×2 (06:43→17:16)
[2020-11-15] MEDS: Aspirin 81 MG TAB.CHEW PO SCH (08:41)
[2020-11-15] MEDS: Cholecalciferol (D-3) 1,000 UNIT (25MCG) TABLET PO SCH (08:42)
[2020-11-15] MEDS: Insulin LISPRO 300 UNITS/3 ML VIAL SUBQ SCH ×3 (08:42→17:15)
[2020-11-15] MEDS: Pregabalin 50 MG CAPSULE PO SCH ×2 (08:42→21:47)
[2020-11-15] MEDS: Multivit/Ca/Min/Fe/FA 1 TAB TABLET PO SCH (08:42)
[2020-11-15] MEDS: Furosemide 40 MG TABLET PO SCH ×2 (08:42→21:47)
[2020-11-15] MEDS ORDERED: hydrOXYzine pamoate 25 MG CAPSULE PO PRN (10:58)
[2020-11-15] MEDS: Insulin DETEMIR 100 UNIT/ML X5UNITS SUBQ SCH (21:47)
[2020-11-15] MEDS: cephALEXin 500 MG CAPSULE PO SCH (21:47)
[2020-11-15] MEDS: Clotrimazole 1% CRM 15 GM TUBE TP SCH (21:53)
[2020-11-16 02:59] LABS: Calcium 9.2 mg/dL (8.6-10.3); Potassium 4.6 mEq/L (3.5-5.1)
[2020-11-16] MEDS: Ipratropium/Albuterol Neb 3 ML IH SCH ×6 (03:45→23:10)
[2020-11-16] MEDS: *HR* Heparin 5,000 UNIT/ML VIAL SQ SCH ×2 (06:37→22:16)
[2020-11-16] MEDS: Aspirin 81 MG TAB.CHEW PO SCH (07:39)
[2020-11-16] MEDS: cephALEXin 500 MG CAPSULE PO SCH ×2 (07:39→22:29)
[2020-11-16] MEDS: Cholecalciferol (D-3) 1,000 UNIT (25MCG) TABLET PO SCH (07:39)
[2020-11-16] MEDS: Pregabalin 50 MG CAPSULE PO SCH ×2 (07:39→22:28)
[2020-11-16] MEDS: Multivit/Ca/Min/Fe/FA 1 TAB TABLET PO SCH (07:39)
[2020-11-16] MEDS: Clotrimazole 1% CRM 15 GM TUBE TP SCH ×2 (07:40→22:29)
[2020-11-16] MEDS: Insulin LISPRO 300 UNITS/3 ML VIAL SUBQ SCH ×3 (13:15→17:58)
[2020-11-16] MEDS: Insulin DETEMIR 100 UNIT/ML X5UNITS SUBQ SCH (22:27)
[2020-11-17] MEDS: Ipratropium/Albuterol Neb 3 ML IH SCH ×7 (03:48→23:20)
[2020-11-17] MEDS: *HR* Heparin 5,000 UNIT/ML VIAL SQ SCH ×2 (05:29→17:28)
[2020-11-17 05:33] LABS: Calcium 9.4 mg/dL (8.6-10.3); Potassium 4.8 mEq/L (3.5-5.1)
[2020-11-17] MEDS: Aspirin 81 MG TAB.CHEW PO SCH (07:36)
[2020-11-17] MEDS: cephALEXin 500 MG CAPSULE PO SCH ×2 (07:36→19:59)
[2020-11-17] MEDS: Cholecalciferol (D-3) 1,000 UNIT (25MCG) TABLET PO SCH (07:37)
[2020-11-17] MEDS: Pregabalin 50 MG CAPSULE PO SCH ×2 (07:37→19:59)
[2020-11-17] MEDS: Multivit/Ca/Min/Fe/FA 1 TAB TABLET PO SCH (07:37)
[2020-11-17] MEDS: Insulin LISPRO 300 UNITS/3 ML VIAL SUBQ SCH ×3 (07:40→17:28)
[2020-11-17] MEDS: Clotrimazole 1% CRM 15 GM TUBE TP SCH (09:00)
[2020-11-17] MEDS: Insulin DETEMIR 100 UNIT/ML X5UNITS SUBQ SCH (20:05)
[2020-11-18] MEDS: Ipratropium/Albuterol Neb 3 ML IH SCH ×5 (03:56→20:46)
[2020-11-18] MEDS: *HR* Heparin 5,000 UNIT/ML VIAL SQ SCH ×2 (06:37→18:31)
[2020-11-18] MEDS: Insulin LISPRO 300 UNITS/3 ML VIAL SUBQ SCH ×3 (10:22→18:31)
[2020-11-18] MEDS: Aspirin 81 MG TAB.CHEW PO SCH (10:23)
[2020-11-18] MEDS: cephALEXin 500 MG CAPSULE PO SCH (10:23)
[2020-11-18] MEDS: Pregabalin 50 MG CAPSULE PO SCH (10:23)
[2020-11-18] MEDS: Cholecalciferol (D-3) 1,000 UNIT (25MCG) TABLET PO SCH (10:23)
[2020-11-18] MEDS: Multivit/Ca/Min/Fe/FA 1 TAB TABLET PO SCH (10:23)
[2020-11-18 16:41] VITALS: BP 113/76
[2020-11-19] MEDS: Ipratropium/Albuterol Neb 3 ML IH SCH ×2 (00:41→07:35)
== END 2020-11-19 09:09 | disposition home or self-care (01) | DRG 562 ==
LOC: 3NENU 23:01 → EMEROOARM 23:01 → 3NENU 11-13 05:00 → SUATTDRO 11-13 14:53 → 3NENU 11-18 23:03
PROVIDERS: ADMIT Internal Medicine; ATTEND Internal Medicine

== ENCOUNTER 2021-02-02 21:46 | Inpatient (IN) ==
[2021-02-02 22:48] LABS: Basophils % 0.4 %; Eosinophils # 0.1 K/mcL (0.0-0.6); Eosinophils % 1.8 %; Hematocrit 48.6 % (37.5-50.1); Immature Granulocytes % 0.4 % (0-4); Immature Platelets 7.9 % (1.1-6.1); Lymphocytes # 1.1 K/mcL (0.6-4.6); Lymphocytes % 14.8 %; Mean Corpuscular HGB Conc 30.9 g/dL (31.6-35.5); Mean Corpuscular Hemoglobin 30.4 pg (28.0-33.3); Mean Corpuscular Volume 98.4 fL (83.0-100.0); Mean Platelet Volume 11.7 fL (9.4-12.4); Monocytes # 0.6 K/mcL (0.0-1.3); Monocytes % 8.1 %; Neutrophils # 5.5 K/mcL (1.6-8.9); Platelet Count 93 K/mcL (140-400); Red Blood Count 4.94 M/mcL (4.19-5.50); Red Cell Distribution Width 14.6 % (11.5-14.5); Segmented Neutrophils % 74.5 %; White Blood Count 7.4 K/mcL (4.3-11.1)
[2021-02-02 23:00] LABS: VBG HCO3 47 mEq/L (21-27); VBG PCO2 84 mmHg (41-51); VBG PH 7.36 pH Units (7.32-7.42); VBG PO2 69 mmHg (25-50)
[2021-02-02 23:14] LABS: INR 1.1; Prothrombin Time 12.4 Seconds (9.4-12.1)
[2021-02-02] MEDS ORDERED: Ondansetron 4 MG/2 ML VIAL IVP STA (23:31)
[2021-02-02 23:42] LABS: Alanine Aminotransferase 19 Units/L (7-52); Albumin 3.8 g/dL (3.5-5.7); Albumin/Globulin Ratio 1.1 (1.1-2.2); Alkaline Phosphatase 103 Units/L (34-104); Aspartate Amino Transferase 21 Units/L (13-39); BUN/Creatinine Ratio 25 (6-26); Bilirubin,Direct 0.1 mg/dL (0.0-0.2); Bilirubin,Indirect 0.5 mg/dL (0.0-1.0); Bilirubin,Total 0.6 mg/dL (0.3-1.0); Blood Urea Nitrogen 32 mg/dL (8-23); Calcium 9.5 mg/dL (8.6-10.3); Carbon Dioxide 40 mEq/L (23-29); Chloride 93 mEq/L (98-107); Globulin 3.6 g/dL (2.4-3.5); Glucose 188 mg/dL (70-105); Lipase 33 Units/L (11-82); Osmolality,Calculated 304 (280-300); Potassium 4.7 mEq/L (3.5-5.1); Sodium 141 mEq/L (136-145); Total Protein 7.4 g/dL (6.4-8.9); Troponin I < 0.03 ng/mL (< 0.04); eGFR For African Americans > 60 (> 60); eGFR For Non-African Americans 57 (> 60)
[2021-02-02] MEDS ORDERED: Isovue-370 500 ML BOTTLE IVP ONE (23:54)
[2021-02-03 02:16] LABS: Influenza A PCR Negative (Negative); Influenza B PCR Negative (Negative); Resp. Syncytial Virus PCR Negative (Negative)
[2021-02-03 02:17] LABS: SARS-CoV-2 by PCR (In House) Negative (Negative)
[2021-02-03 02:29] LABS: VBG HCO3 35 mEq/L (21-27); VBG PCO2 76 mmHg (41-51); VBG PH 7.27 pH Units (7.32-7.42); VBG PO2 106 mmHg (25-50)
[2021-02-03] MEDS ORDERED: predniSONE 20 MG TABLET PO ONE (03:09)
[2021-02-03] MEDS ORDERED: Naloxone 0.4 MG/ML INJ IVP PRN (05:25)
[2021-02-03] MEDS ORDERED: Melatonin 3 MG TABLET PO PRN (05:25)
[2021-02-03] MEDS ORDERED: *HR* Promethazine 25 MG/ML VIAL IM PRN (05:25)
[2021-02-03] MEDS ORDERED: Ondansetron 4 MG/2 ML VIAL IVP PRN (05:25)
[2021-02-03] MEDS ORDERED: Acetaminophen 325 MG TABLET PO PRN (05:25)
[2021-02-03] MEDS ORDERED: Ipratropium/Albuterol Neb 3 ML IH PRN (05:29)
[2021-02-03] MEDS ORDERED: Dextrose Gel 15 GM/37.5 ML TUBE PO PRN ×2 (05:55)
[2021-02-03] MEDS ORDERED: D5% in Water 1,000 ML IVC PRN (05:55)
[2021-02-03] MEDS ORDERED: *HR* Dextrose 50 % in Water (Vial) 50 ML VIAL IVP PRN (05:55)
[2021-02-03] MEDS ORDERED: *HR* Enoxaparin 40 MG/0.4 ML SYRINGE SQ SCH (06:00)
[2021-02-03 06:36] LABS: Hematocrit 47.2 % (37.5-50.1); Hemoglobin 14.5 g/dL (12.9-16.9); Mean Corpuscular HGB Conc 30.7 g/dL (31.6-35.5); Mean Corpuscular Hemoglobin 30.1 pg (28.0-33.3); Mean Corpuscular Volume 98.1 fL (83.0-100.0); Red Blood Count 4.81 M/mcL (4.19-5.50)
[2021-02-03] MEDS: MethylPREDNISolone 40 MG/ML VIAL IVP SCH ×2 (06:37→17:23)
[2021-02-03 06:38] LABS: Basophils % 0.5 %; Eosinophils # 0.1 K/mcL (0.0-0.6); Eosinophils % 1.6 %; Immature Granulocytes % 0.3 % (0-4); Immature Platelets 8.5 % (1.1-6.1); Lymphocytes # 0.7 K/mcL (0.6-4.6); Lymphocytes % 10.4 %; Mean Platelet Volume 10.8 fL (9.4-12.4); Monocytes # 0.3 K/mcL (0.0-1.3); Monocytes % 4.2 %; Neutrophils # 5.2 K/mcL (1.6-8.9); Red Cell Distribution Width 14.9 % (11.5-14.5); White Blood Count 6.3 K/mcL (4.3-11.1)
[2021-02-03] MEDS: Insulin LISPRO 300 UNITS/3 ML VIAL SUBQ SCH ×4 (06:38→21:14)
[2021-02-03 06:52] LABS: Platelet Count 83 K/mcL (140-400)
[2021-02-03 07:02] LABS: BUN/Creatinine Ratio 25 (6-26); Blood Urea Nitrogen 33 mg/dL (8-23); Carbon Dioxide 44 mEq/L (23-29); Chloride 92 mEq/L (98-107); Glucose 221 mg/dL (70-105); Osmolality,Calculated 304 (280-300); Potassium 4.6 mEq/L (3.5-5.1); Sodium 140 mEq/L (136-145); eGFR For African Americans > 60 (> 60); eGFR For Non-African Americans 56 (> 60)
[2021-02-03] MEDS: Ipratropium/Albuterol Neb 3 ML IH SCH ×5 (07:37→23:37)
[2021-02-03] MEDS ORDERED: Azithromycin 250 MG TABLET PO ONE (12:50)
[2021-02-03 13:17] LABS: VBG HCO3 39 mEq/L (21-27); VBG PCO2 65 mmHg (41-51); VBG PH 7.39 pH Units (7.32-7.42); VBG PO2 185 mmHg (25-50)
[2021-02-03] MEDS: Aspirin 81 MG TAB.CHEW PO SCH (14:12)
[2021-02-03] MEDS: Furosemide 40 MG TABLET PO SCH ×2 (14:13→20:39)
[2021-02-03] MEDS: Nicotine 7 MG PATCH.TD24 TD SCH (17:22)
[2021-02-03] MEDS: Pregabalin 50 MG CAPSULE PO SCH (20:40)
[2021-02-03] MEDS ORDERED: Insulin DETEMIR 100 UNIT/ML X5UNITS SUBQ SCH (21:00)
[2021-02-04 02:55] LABS: VBG HCO3 41 mEq/L (21-27); VBG PCO2 64 mmHg (41-51); VBG PH 7.42 pH Units (7.32-7.42); VBG PO2 211 mmHg (25-50)
[2021-02-04 02:57] LABS: Basophils % 0.1 %; Red Cell Distribution Width 13.9 % (11.5-14.5)
[2021-02-04 02:58] LABS: Hematocrit 42.8 % (37.5-50.1); Hemoglobin 13.7 g/dL (12.9-16.9); Immature Granulocytes % 1.4 % (0-4); Immature Platelets 6.7 % (1.1-6.1); Lymphocytes # 0.5 K/mcL (0.6-4.6); Lymphocytes % 7.1 %; Mean Corpuscular Hemoglobin 30.6 pg (28.0-33.3); Mean Corpuscular Volume 95.7 fL (83.0-100.0); Mean Platelet Volume 11.5 fL (9.4-12.4); Monocytes # 0.3 K/mcL (0.0-1.3); Monocytes % 3.8 %; Neutrophils # 6.3 K/mcL (1.6-8.9); Red Blood Count 4.47 M/mcL (4.19-5.50); Segmented Neutrophils % 87.6 %; White Blood Count 7.2 K/mcL (4.3-11.1)
[2021-02-04 03:06] LABS: Platelet Count 87 K/mcL (140-400)
[2021-02-04] MEDS: Ipratropium/Albuterol Neb 3 ML IH SCH ×5 (03:16→21:55)
[2021-02-04 03:18] LABS: BUN/Creatinine Ratio 24 (6-26); Blood Urea Nitrogen 31 mg/dL (8-23); Calcium 9.2 mg/dL (8.6-10.3); Carbon Dioxide 37 mEq/L (23-29); Chloride 91 mEq/L (98-107); Glucose 329 mg/dL (70-105); Osmolality,Calculated 299 (280-300); Potassium 4.6 mEq/L (3.5-5.1); Sodium 135 mEq/L (136-145); eGFR For African Americans > 60 (> 60); eGFR For Non-African Americans 56 (> 60)
[2021-02-04] MEDS: MethylPREDNISolone 40 MG/ML VIAL IVP SCH ×2 (05:27→18:28)
[2021-02-04] MEDS: Azithromycin 250 MG TABLET PO SCH (10:54)
[2021-02-04] MEDS: Insulin LISPRO 300 UNITS/3 ML VIAL SUBQ SCH ×4 (10:54→20:58)
[2021-02-04] MEDS: Aspirin 81 MG TAB.CHEW PO SCH (10:54)
[2021-02-04] MEDS: Pregabalin 50 MG CAPSULE PO SCH ×2 (10:54→20:57)
[2021-02-04] MEDS: Furosemide 40 MG TABLET PO SCH ×2 (10:55→20:57)
[2021-02-04] MEDS: Nicotine 7 MG PATCH.TD24 TD SCH (10:55)
[2021-02-04] MEDS: Insulin DETEMIR 100 UNIT/ML X5UNITS SUBQ SCH (20:57)
[2021-02-05] MEDS: Ipratropium/Albuterol Neb 3 ML IH SCH ×7 (00:39→23:53)
[2021-02-05 05:28] LABS: VBG HCO3 28 mEq/L (21-27); VBG PCO2 64 mmHg (41-51); VBG PH 7.25 pH Units (7.32-7.42); VBG PO2 52 mmHg (25-50)
[2021-02-05 06:11] LABS: Basophils % 0.1 %; Hematocrit 44.2 % (37.5-50.1); Immature Granulocytes % 0.4 % (0-4); Lymphocytes # 0.6 K/mcL (0.6-4.6); Lymphocytes % 8.2 %; Mean Corpuscular HGB Conc 32.4 g/dL (31.6-35.5); Mean Corpuscular Hemoglobin 30.4 pg (28.0-33.3); Mean Platelet Volume 10.8 fL (9.4-12.4); Monocytes # 0.2 K/mcL (0.0-1.3); Monocytes % 3.4 %; Neutrophils # 6.2 K/mcL (1.6-8.9); Red Cell Distribution Width 13.8 % (11.5-14.5); Segmented Neutrophils % 87.9 %; White Blood Count 7.1 K/mcL (4.3-11.1)
[2021-02-05 06:13] LABS: Hemoglobin 14.3 g/dL (12.9-16.9); Platelet Count 86 K/mcL (140-400)
[2021-02-05 06:22] LABS: ABG Base Excess 12 mEq/L (-2 to 3); ABG HCO3 42 mEq/L (21-27); ABG Oxygen Saturation 89 % (95-98); ABG PCO2 74 mmHg (35-45); ABG PH 7.36 pH Units (7.32-7.45); ABG PO2 62 mmHg (85-104); ABG TCO2 44 mEq/L (20-26)
[2021-02-05 08:29] LABS: BUN/Creatinine Ratio 29 (6-26); Blood Urea Nitrogen 40 mg/dL (8-23); Calcium 9.6 mg/dL (8.6-10.3); Chloride 89 mEq/L (98-107); Glucose 311 mg/dL (70-105); Osmolality,Calculated 302 (280-300); Potassium 4.4 mEq/L (3.5-5.1); Sodium 135 mEq/L (136-145); eGFR For African Americans > 60 (> 60); eGFR For Non-African Americans 53 (> 60)
[2021-02-05] MEDS: Furosemide 40 MG TABLET PO SCH (08:34)
[2021-02-05] MEDS: Aspirin 81 MG TAB.CHEW PO SCH (08:34)
[2021-02-05] MEDS: *HR* Glimepiride 4 MG TABLET PO SCH (08:34)
[2021-02-05] MEDS: Pregabalin 50 MG CAPSULE PO SCH ×2 (08:34→20:41)
[2021-02-05] MEDS: Azithromycin 250 MG TABLET PO SCH (08:34)
[2021-02-05] MEDS: Nicotine 7 MG PATCH.TD24 TD SCH (08:35)
[2021-02-05] MEDS: MethylPREDNISolone 40 MG/ML VIAL IVP SCH (08:35)
[2021-02-05] MEDS: Insulin LISPRO 300 UNITS/3 ML VIAL SUBQ SCH ×4 (08:36→20:39)
[2021-02-05 09:58] LABS: Carbon Dioxide 37 mEq/L (23-29)
[2021-02-05 10:06] LABS: Estimated Average Glucose 120 mg/dl; Hemoglobin A1C 5.8 %
[2021-02-05 10:47] LABS: VBG HCO3 38 mEq/L (21-27); VBG PCO2 71 mmHg (41-51); VBG PH 7.34 pH Units (7.32-7.42); VBG PO2 47 mmHg (25-50)
[2021-02-05 16:48] LABS: VBG HCO3 39 mEq/L (21-27); VBG PCO2 61 mmHg (41-51); VBG PH 7.41 pH Units (7.32-7.42); VBG PO2 48 mmHg (25-50)
[2021-02-05] MEDS: Insulin DETEMIR 100 UNIT/ML X5UNITS SUBQ SCH (20:40)
[2021-02-06] MEDS: Ipratropium/Albuterol Neb 3 ML IH SCH ×5 (04:50→20:42)
[2021-02-06 07:13] LABS: VBG HCO3 37 mEq/L (21-27); VBG PCO2 56 mmHg (41-51); VBG PH 7.44 pH Units (7.32-7.42); VBG PO2 137 mmHg (25-50)
[2021-02-06] MEDS: Insulin LISPRO 300 UNITS/3 ML VIAL SUBQ SCH ×4 (07:26→21:18)
[2021-02-06 07:52] LABS: Red Cell Distribution Width 13.8 % (11.5-14.5)
[2021-02-06 07:54] LABS: Basophils % 0.1 %; Eosinophils # 0.1 K/mcL (0.0-0.6); Hematocrit 48.9 % (37.5-50.1); Immature Granulocytes % 0.3 % (0-4); Immature Platelets 9.3 % (1.1-6.1); Lymphocytes % 21.3 %; Mean Corpuscular HGB Conc 32.7 g/dL (31.6-35.5); Mean Corpuscular Hemoglobin 30.7 pg (28.0-33.3); Mean Corpuscular Volume 93.7 fL (83.0-100.0); Mean Platelet Volume 12.1 fL (9.4-12.4); Monocytes # 0.4 K/mcL (0.0-1.3); Monocytes % 6.2 %; Neutrophils # 4.8 K/mcL (1.6-8.9); Platelet Count 79 K/mcL (140-400); Red Blood Count 5.22 M/mcL (4.19-5.50); Segmented Neutrophils % 71.1 %; White Blood Count 6.8 K/mcL (4.3-11.1)
[2021-02-06 07:56] LABS: Lymphocytes # 1.5 K/mcL (0.6-4.6)
[2021-02-06 09:39] LABS: BUN/Creatinine Ratio 33 (6-26); Blood Urea Nitrogen 42 mg/dL (8-23); Calcium 9.5 mg/dL (8.6-10.3); Carbon Dioxide 35 mEq/L (23-29); Chloride 94 mEq/L (98-107); Glucose 111 mg/dL (70-105); Osmolality,Calculated 293 (280-300); Sodium 136 mEq/L (136-145); eGFR For African Americans > 60 (> 60); eGFR For Non-African Americans 57 (> 60)
[2021-02-06] MEDS: Pregabalin 50 MG CAPSULE PO SCH ×2 (10:16→21:16)
[2021-02-06] MEDS: MethylPREDNISolone 40 MG/ML VIAL IVP SCH (10:17)
[2021-02-06] MEDS: Azithromycin 250 MG TABLET PO SCH (10:17)
[2021-02-06] MEDS: *HR* Glimepiride 4 MG TABLET PO SCH (10:17)
[2021-02-06] MEDS: Aspirin 81 MG TAB.CHEW PO SCH (10:17)
[2021-02-06] MEDS: Nicotine 7 MG PATCH.TD24 TD SCH (10:18)
[2021-02-06] MEDS: Furosemide 40 MG TABLET PO SCH (16:16)
[2021-02-06] MEDS: Insulin DETEMIR 100 UNIT/ML X5UNITS SUBQ SCH (21:17)
[2021-02-07] MEDS: Ipratropium/Albuterol Neb 3 ML IH SCH ×6 (00:14→20:40)
[2021-02-07 03:35] VITALS: TEMP 97.9
[2021-02-07 04:57] LABS: VBG HCO3 34 mEq/L (21-27); VBG PCO2 59 mmHg (41-51); VBG PH 7.37 pH Units (7.32-7.42); VBG PO2 118 mmHg (25-50)
[2021-02-07] MEDS: Nicotine 7 MG PATCH.TD24 TD SCH (08:23)
[2021-02-07] MEDS: Insulin LISPRO 300 UNITS/3 ML VIAL SUBQ SCH ×2 (08:24→12:30)
[2021-02-07] MEDS: Aspirin 81 MG TAB.CHEW PO SCH (08:32)
[2021-02-07] MEDS: Pregabalin 50 MG CAPSULE PO SCH (08:32)
[2021-02-07] MEDS: MethylPREDNISolone 40 MG/ML VIAL IVP SCH (08:33)
[2021-02-07] MEDS: Furosemide 40 MG TABLET PO SCH (08:33)
[2021-02-07] MEDS: Azithromycin 250 MG TABLET PO SCH (08:33)
[2021-02-07] MEDS: *HR* Glimepiride 4 MG TABLET PO SCH (08:34)
[2021-02-07 11:00] VITALS: BP 105/60; PULSE 95
[2021-02-07 14:30] VITALS: O2SAT 91
== END 2021-02-07 14:00 | disposition home or self-care (01) | DRG 189 ==
LOC: EMEROOARM 21:46 → 3ANU 21:46 → SUATTDRO 02-03 04:20 → 3ANU 02-03 04:35
PROVIDERS: ADMIT Internal Medicine; ATTEND Internal Medicine

== ENCOUNTER 2021-05-29 00:27 | Inpatient (IN) ==
[2021-05-29 01:42] LABS: Basophils % 0.4 %; Eosinophils % 1.2 %
[2021-05-29 01:44] LABS: Eosinophils # 0.1 K/mcL (0.0-0.6); Hematocrit 46.2 % (37.5-50.1); Hemoglobin 13.9 g/dL (12.9-16.9); Immature Granulocytes % 0.3 % (0-4); Immature Platelets 6.1 % (1.1-6.1); Lymphocytes # 1.1 K/mcL (0.6-4.6); Lymphocytes % 14.3 %; Mean Corpuscular HGB Conc 30.1 g/dL (31.6-35.5); Mean Corpuscular Volume 99.8 fL (83.0-100.0); Monocytes # 0.6 K/mcL (0.0-1.3); Monocytes % 7.8 %; Neutrophils # 5.8 K/mcL (1.6-8.9); Platelet Count 102 K/mcL (140-400); Red Blood Count 4.63 M/mcL (4.19-5.50); Red Cell Distribution Width 14.5 % (11.5-14.5); White Blood Count 7.6 K/mcL (4.3-11.1)
[2021-05-29 01:50] LABS: INR 1.1; Prothrombin Time 11.7 Seconds (9.4-12.1)
[2021-05-29 01:52] LABS: Activated Partial Thrombo Time 39.2 Seconds (26.0-36.0)
[2021-05-29 02:09] LABS: VBG HCO3 51 mEq/L (21-27); VBG PCO2 103 mmHg (41-51); VBG PO2 32 mmHg (25-50)
[2021-05-29 02:18] LABS: Influenza A PCR Negative (Negative); Influenza B PCR Negative (Negative); Resp. Syncytial Virus PCR Negative (Negative)
[2021-05-29 02:19] LABS: Alanine Aminotransferase 14 Units/L (7-52); Albumin 3.8 g/dL (3.5-5.7); Albumin/Globulin Ratio 1.2 (1.1-2.2); Alkaline Phosphatase 89 Units/L (34-104); Aspartate Amino Transferase 15 Units/L (13-39); BUN/Creatinine Ratio 25 (6-26); Bilirubin,Direct 0.2 mg/dL (0.0-0.2); Bilirubin,Indirect 0.4 mg/dL (0.0-1.0); Bilirubin,Total 0.6 mg/dL (0.3-1.0); Blood Urea Nitrogen 30 mg/dL (8-23); Calcium 9.3 mg/dL (8.6-10.3); Carbon Dioxide > 45 mEq/L (23-29); Chloride 92 mEq/L (98-107); Globulin 3.3 g/dL (2.4-3.5); Glucose 120 mg/dL (70-105); Osmolality,Calculated 305 (280-300); Potassium 4.6 mEq/L (3.5-5.1); Sodium 144 mEq/L (136-145); Total Protein 7.1 g/dL (6.4-8.9); Troponin I < 0.03 ng/mL (< 0.04); eGFR For African Americans > 60 (> 60); eGFR For Non-African Americans > 60 (> 60)
[2021-05-29 02:23] LABS: SARS-CoV-2 by PCR (In House) Negative (Negative)
[2021-05-29] MEDS ORDERED: *HR* LORazepam 2 MG/ML VIAL IVP ONE (02:48)
[2021-05-29] MEDS ORDERED: Naloxone 0.4 MG/ML INJ IVP PRN (03:45)
[2021-05-29] MEDS: Ipratropium/Albuterol Neb 3 ML IH SCH ×5 (05:34→20:20)
[2021-05-29] MEDS ORDERED: MethylPREDNISolone 40 MG/ML VIAL IVP SCH (06:00)
[2021-05-29] MEDS ORDERED: Furosemide 40 MG/4 ML VIAL IVP ONE (06:53)
[2021-05-29] MEDS ORDERED: Dextrose Gel 15 GM/37.5 ML TUBE PO PRN ×2 (07:22)
[2021-05-29] MEDS: MethylPREDNISolone 40 MG/ML VIAL IVP SCH ×2 (07:22→16:22)
[2021-05-29] MEDS ORDERED: *HR* Dextrose 50 % in Water (Syg) 50 ML SYRINGE IVP PRN (07:22)
[2021-05-29] MEDS ORDERED: D5% in Water 1,000 ML IVC PRN (07:22)
[2021-05-29] MEDS: Azithromycin 250 MG TABLET PO SCH (07:23)
[2021-05-29] MEDS: Insulin LISPRO 300 UNITS/3 ML VIAL SUBQ SCH ×3 (08:33→17:12)
[2021-05-29 09:53] LABS: VBG HCO3 41 mEq/L (21-27); VBG PCO2 66 mmHg (41-51); VBG PO2 86 mmHg (25-50)
[2021-05-29] MEDS: *HR* Enoxaparin 40 MG/0.4 ML SYRINGE SQ SCH (16:22)
[2021-05-29] MEDS: Insulin DETEMIR 100 UNIT/ML X5UNITS SUBQ SCH (20:05)
[2021-05-30] MEDS: Ipratropium/Albuterol Neb 3 ML IH SCH ×6 (00:02→21:19)
[2021-05-30] MEDS: MethylPREDNISolone 40 MG/ML VIAL IVP SCH ×4 (00:22→23:04)
[2021-05-30] MEDS: *HR* Enoxaparin 40 MG/0.4 ML SYRINGE SQ SCH (05:15)
[2021-05-30] MEDS ORDERED: *HR* Enoxaparin 30 MG/0.3 ML SYRINGE SQ SCH (08:00)
[2021-05-30] MEDS ORDERED: Furosemide 40 MG/4 ML VIAL IVP ONE (08:28)
[2021-05-30] MEDS: Azithromycin 250 MG TABLET PO SCH (09:44)
[2021-05-30] MEDS: Insulin LISPRO 300 UNITS/3 ML VIAL SUBQ SCH ×3 (09:45→16:52)
[2021-05-30] MEDS ORDERED: Insulin LISPRO 300 UNITS/3 ML VIAL SUBQ ONE (09:46)
[2021-05-30 10:00] LABS: Immature Granulocytes % 0.4 % (0-4); Red Cell Distribution Width 13.8 % (11.5-14.5)
[2021-05-30 10:01] LABS: Hematocrit 42.7 % (37.5-50.1); Immature Platelets 9.7 % (1.1-6.1); Lymphocytes # 0.5 K/mcL (0.6-4.6); Lymphocytes % 6.2 %; Mean Corpuscular HGB Conc 32.8 g/dL (31.6-35.5); Mean Corpuscular Hemoglobin 30.7 pg (28.0-33.3); Mean Platelet Volume 11.8 fL (9.4-12.4); Monocytes # 0.2 K/mcL (0.0-1.3); Monocytes % 2.8 %; Platelet Count 111 K/mcL (140-400); Red Blood Count 4.56 M/mcL (4.19-5.50); Segmented Neutrophils % 90.6 %; White Blood Count 7.6 K/mcL (4.3-11.1)
[2021-05-30 10:05] LABS: Alanine Aminotransferase 14 Units/L (7-52); Albumin 4.1 g/dL (3.5-5.7); Albumin/Globulin Ratio 1.3 (1.1-2.2); Alkaline Phosphatase 89 Units/L (34-104); Aspartate Amino Transferase 15 Units/L (13-39); BUN/Creatinine Ratio 29 (6-26); Bilirubin,Total 0.5 mg/dL (0.3-1.0); Blood Urea Nitrogen 36 mg/dL (8-23); Calcium 9.7 mg/dL (8.6-10.3); Carbon Dioxide 37 mEq/L (23-29); Chloride 90 mEq/L (98-107); Globulin 3.1 g/dL (2.4-3.5); Glucose 334 mg/dL (70-105); Osmolality,Calculated 301 (280-300); Potassium 4.5 mEq/L (3.5-5.1); Sodium 135 mEq/L (136-145); Total Protein 7.2 g/dL (6.4-8.9); eGFR For African Americans > 60 (> 60); eGFR For Non-African Americans 59 (> 60)
[2021-05-30 10:12] LABS: Neutrophils # 6.9 K/mcL (1.6-8.9)
[2021-05-30] MEDS ORDERED: Insulin LISPRO 300 UNITS/3 ML VIAL SUBQ SCH (21:00)
[2021-05-30] MEDS: Insulin DETEMIR 100 UNIT/ML X5UNITS SUBQ SCH (21:42)
[2021-05-31 01:02] LABS: Hemoglobin 13.1 g/dL (12.9-16.9); Lymphocytes % 4.7 %; Mean Platelet Volume 11.3 fL (9.4-12.4)
[2021-05-31 01:04] LABS: Hematocrit 41.4 % (37.5-50.1); Immature Granulocytes % 0.3 % (0-4); Immature Platelets 8.3 % (1.1-6.1); Lymphocytes # 0.4 K/mcL (0.6-4.6); Mean Corpuscular HGB Conc 31.6 g/dL (31.6-35.5); Mean Corpuscular Volume 94.7 fL (83.0-100.0); Monocytes # 0.2 K/mcL (0.0-1.3); Monocytes % 2.8 %; Neutrophils # 7.3 K/mcL (1.6-8.9); Platelet Count 108 K/mcL (140-400); Red Blood Count 4.37 M/mcL (4.19-5.50); Red Cell Distribution Width 13.5 % (11.5-14.5); Segmented Neutrophils % 92.2 %; White Blood Count 7.9 K/mcL (4.3-11.1)
[2021-05-31] MEDS: Ipratropium/Albuterol Neb 3 ML IH SCH ×5 (01:04→16:19)
[2021-05-31 01:21] LABS: Alanine Aminotransferase 13 Units/L (7-52); Albumin 3.7 g/dL (3.5-5.7); Albumin/Globulin Ratio 1.2 (1.1-2.2); Alkaline Phosphatase 71 Units/L (34-104); Aspartate Amino Transferase 15 Units/L (13-39); BUN/Creatinine Ratio 33 (6-26); Bilirubin,Total 0.5 mg/dL (0.3-1.0); Blood Urea Nitrogen 48 mg/dL (8-23); Calcium 9.5 mg/dL (8.6-10.3); Carbon Dioxide 34 mEq/L (23-29); Chloride 92 mEq/L (98-107); Glucose 336 mg/dL (70-105); Osmolality,Calculated 304 (280-300); Potassium 4.4 mEq/L (3.5-5.1); Sodium 134 mEq/L (136-145); Total Protein 6.7 g/dL (6.4-8.9); eGFR For African Americans > 60 (> 60); eGFR For Non-African Americans 50 (> 60)
[2021-05-31] MEDS: *HR* Enoxaparin 40 MG/0.4 ML SYRINGE SQ SCH (05:14)
[2021-05-31] MEDS ORDERED: Perflutren Lipid Microsphere 1.3 ML in 0.9 % Sodium Chloride 8.7 ML IVP PRN (08:28)
[2021-05-31] MEDS ORDERED: Aspirin 81 MG TAB.CHEW PO SCH (09:00)
[2021-05-31] MEDS ORDERED: Furosemide 40 MG/4 ML VIAL IVP SCH (09:00)
[2021-05-31] MEDS: Insulin LISPRO 300 UNITS/3 ML VIAL SUBQ SCH ×2 (09:24→11:34)
[2021-05-31] MEDS: Azithromycin 250 MG TABLET PO SCH (09:27)
[2021-05-31] MEDS: MethylPREDNISolone 40 MG/ML VIAL IVP SCH (09:27)
[2021-05-31 11:08] VITALS: BP 136/73; PULSE 89; TEMP 98.1
[2021-05-31 16:21] VITALS: O2SAT 92
== END 2021-05-31 17:24 | disposition home or self-care (01) | DRG 190 ==
LOC: 3BNU 00:27 → EMEROOARM 00:27 → 3BNU 03:36 → SUATTDRO 05-30 14:09
PROVIDERS: ADMIT Internal Medicine; ATTEND Registered Nurse

== ENCOUNTER 2021-08-20 12:53 | Inpatient (IN) ==
[2021-08-20] MEDS ORDERED: Naloxone 0.4 MG/ML INJ IVP PRN (15:57)
[2021-08-20] MEDS ORDERED: Ondansetron 4 MG/2 ML VIAL IVP PRN (15:57)
[2021-08-20] MEDS ORDERED: Melatonin 3 MG TABLET PO PRN (15:57)
[2021-08-20] MEDS ORDERED: Mag Hydrox/Al Hydrox/Simeth 30 ML UDC PO PRN (15:57)
[2021-08-20] MEDS ORDERED: Dextrose 4 GM Chewable Tablets PO PRN ×2 (15:59)
[2021-08-20] MEDS ORDERED: *HR* Dextrose 50 % in Water (Syg) 50 ML SYRINGE IVP PRN (15:59)
[2021-08-20] MEDS ORDERED: D5% in Water 1,000 ML IVC PRN (15:59)
[2021-08-20] MEDS: MethylPREDNISolone 40 MG/ML VIAL IVP SCH (17:19)
[2021-08-20] MEDS: Piperacillin/Tazobactam 3.375 GM in 0.9 % Sodium Chloride Mini Bag 100 ML IVPB SCH (17:20)
[2021-08-20] MEDS: Insulin LISPRO 300 UNITS/3 ML VIAL SUBQ SCH (17:20)
[2021-08-20] MEDS: *HR* Heparin 5,000 UNIT/ML VIAL SQ SCH (17:21)
[2021-08-20] MEDS ORDERED: Insulin Human Regular 10 UNIT in 0.9 % Sodium Chloride 10 ML IV ONE (17:27)
[2021-08-20] MEDS: Nicotine 21 MG PATCH.TD24 TD SCH (18:36)
[2021-08-20] MEDS: Albuterol 2.5 MG/3 ML NEBULIZER IH SCH ×2 (20:23→23:54)
[2021-08-20] MEDS: Budesonide/Formoterol 160/4.5 1 PUFF INH IH SCH (20:24)
[2021-08-20] MEDS ORDERED: Insulin DETEMIR 100 UNIT/ML X5UNITS SUBQ SCH (21:00)
[2021-08-20] MEDS: Doxycycline 100 MG CAPSULE PO SCH (22:35)
[2021-08-20] MEDS: Pregabalin 50 MG CAPSULE PO SCH (22:36)
[2021-08-21] MEDS: Piperacillin/Tazobactam 3.375 GM in 0.9 % Sodium Chloride Mini Bag 100 ML IVPB SCH ×3 (00:34→16:54)
[2021-08-21] MEDS: Albuterol 2.5 MG/3 ML NEBULIZER IH SCH ×5 (03:39→20:24)
[2021-08-21 04:38] LABS: Hematocrit 39.2 % (37.5-50.1); Hemoglobin 11.8 g/dL (12.9-16.9); Lymphocytes # 0.4 K/mcL (0.6-4.6); Lymphocytes % 4.5 %; Mean Corpuscular HGB Conc 30.1 g/dL (31.6-35.5); Mean Corpuscular Hemoglobin 29.6 pg (28.0-33.3); Mean Corpuscular Volume 98.2 fL (83.0-100.0); Mean Platelet Volume 10.9 fL (9.4-12.4); Monocytes # 0.3 K/mcL (0.0-1.3); Monocytes % 3.3 %; Neutrophils # 7.9 K/mcL (1.6-8.9); Platelet Count 181 K/mcL (140-400); Red Blood Count 3.99 M/mcL (4.19-5.50); Segmented Neutrophils % 91.2 %; White Blood Count 8.7 K/mcL (4.3-11.1)
[2021-08-21 04:58] LABS: Calcium 9.2 mg/dL (8.6-10.3); Potassium 5.2 mEq/L (3.5-5.1)
[2021-08-21 05:03] LABS: VBG HCO3 36 mEq/L (21-27); VBG PCO2 70 mmHg (41-51); VBG PH 7.32 pH Units (7.32-7.42); VBG PO2 110 mmHg (25-50)
[2021-08-21] MEDS: MethylPREDNISolone 40 MG/ML VIAL IVP SCH ×2 (06:04→16:53)
[2021-08-21] MEDS: *HR* Heparin 5,000 UNIT/ML VIAL SQ SCH ×2 (06:05→16:54)
[2021-08-21] MEDS: Insulin LISPRO 300 UNITS/3 ML VIAL SUBQ SCH ×4 (06:56→16:55)
[2021-08-21] MEDS: Budesonide/Formoterol 160/4.5 1 PUFF INH IH SCH ×2 (08:05→20:24)
[2021-08-21] MEDS: Doxycycline 100 MG CAPSULE PO SCH ×2 (09:39→20:35)
[2021-08-21] MEDS: Nicotine 21 MG PATCH.TD24 TD SCH (09:40)
[2021-08-21] MEDS: Pregabalin 50 MG CAPSULE PO SCH ×2 (09:45→20:35)
[2021-08-21] MEDS ORDERED: Insulin Human Regular 10 UNIT in 0.9 % Sodium Chloride 10 ML IV ONE (14:18)
[2021-08-21] MEDS: Insulin DETEMIR 100 UNIT/ML X5UNITS SUBQ SCH (20:38)
[2021-08-22] MEDS: Piperacillin/Tazobactam 3.375 GM in 0.9 % Sodium Chloride Mini Bag 100 ML IVPB SCH ×4 (00:11→23:38)
[2021-08-22] MEDS: Albuterol 2.5 MG/3 ML NEBULIZER IH SCH ×6 (00:24→20:30)
[2021-08-22 02:36] LABS: Basophils % 0.1 %; Hematocrit 40.8 % (37.5-50.1); Hemoglobin 12.3 g/dL (12.9-16.9); Immature Granulocytes % 0.9 % (0-4); Lymphocytes # 0.4 K/mcL (0.6-4.6); Mean Corpuscular HGB Conc 30.1 g/dL (31.6-35.5); Mean Corpuscular Hemoglobin 29.4 pg (28.0-33.3); Mean Corpuscular Volume 97.6 fL (83.0-100.0); Mean Platelet Volume 10.7 fL (9.4-12.4); Monocytes # 0.3 K/mcL (0.0-1.3); Monocytes % 3.4 %; Neutrophils # 7.2 K/mcL (1.6-8.9); Platelet Count 189 K/mcL (140-400); Red Blood Count 4.18 M/mcL (4.19-5.50); Red Cell Distribution Width 13.9 % (11.5-14.5); Segmented Neutrophils % 90.6 %
[2021-08-22 03:00] LABS: BUN/Creatinine Ratio 38 (6-26); Blood Urea Nitrogen 52 mg/dL (8-23); Calcium 9.5 mg/dL (8.6-10.3); Carbon Dioxide 34 mEq/L (23-29); Chloride 96 mEq/L (98-107); Glucose 417 mg/dL (70-105); Osmolality,Calculated 314 (280-300); Potassium 6.2 mEq/L (3.5-5.1); Sodium 136 mEq/L (136-145); eGFR For African Americans > 60 (> 60); eGFR For Non-African Americans 53 (> 60)
[2021-08-22] MEDS: MethylPREDNISolone 40 MG/ML VIAL IVP SCH ×2 (06:05→16:51)
[2021-08-22] MEDS: *HR* Heparin 5,000 UNIT/ML VIAL SQ SCH ×2 (06:05→16:51)
[2021-08-22] MEDS ORDERED: Insulin Human Regular 10 UNIT in 0.9 % Sodium Chloride 10 ML IV ONE (07:18)
[2021-08-22] MEDS: Budesonide/Formoterol 160/4.5 1 PUFF INH IH SCH ×2 (08:13→20:30)
[2021-08-22 08:23] LABS: Calcium 9.5 mg/dL (8.6-10.3); Potassium 5.7 mEq/L (3.5-5.1)
[2021-08-22] MEDS: Insulin LISPRO 300 UNITS/3 ML VIAL SUBQ SCH ×3 (09:00→16:51)
[2021-08-22] MEDS: Doxycycline 100 MG CAPSULE PO SCH ×2 (09:00→20:55)
[2021-08-22] MEDS: Pregabalin 50 MG CAPSULE PO SCH ×2 (09:00→20:55)
[2021-08-22] MEDS: Nicotine 21 MG PATCH.TD24 TD SCH (09:02)
[2021-08-22] MEDS ORDERED: 0.9 % Sodium Chloride 1,000 ML IVC SCH (11:45)
[2021-08-22 13:21] LABS: Bilirubin,Urine Negative (Negative); Blood,Urine Trace (Negative); Clarity,Urine Clear (Clear); Color,Urine Light-Yellow (Yellow); Glucose,Urine (UA) >=1000 mg/dL (Normal); Ketones,Urine Negative (Negative); Leukocyte Esterase,Urine Negative (Negative); Nitrite,Urine Negative (Negative); Protein,Urine 30 mg/dL (Neg-Trace); RBC,Urine 0-3 per hpf (0-3); Specific Gravity,Urine 1.025 (1.010-1.025); Squamous Epithelial Cell,Urine Few per hpf (None-Few); Urobilinogen,Urine Normal (Normal); WBC,Urine 0-3 per hpf (0-3)
[2021-08-22 13:26] LABS: Protein/Creatinine Ratio,Urine 0.64 mg/mg (0.00-0.20); Sodium, Urine 61.8 mEq/L
[2021-08-22] MEDS: Insulin DETEMIR 100 UNIT/ML X5UNITS SUBQ SCH (21:05)
[2021-08-23] MEDS: Albuterol 2.5 MG/3 ML NEBULIZER IH SCH ×6 (00:09→20:33)
[2021-08-23] MEDS ORDERED: Acetaminophen 325 MG TABLET PO PRN (00:40)
[2021-08-23 03:24] LABS: Basophils % 0.3 %; Eosinophils % 0.1 %; Hematocrit 38.8 % (37.5-50.1); Hemoglobin 11.7 g/dL (12.9-16.9); Immature Granulocytes % 1.2 % (0-4); Lymphocytes # 0.5 K/mcL (0.6-4.6); Lymphocytes % 6.9 %; Mean Corpuscular HGB Conc 30.2 g/dL (31.6-35.5); Mean Corpuscular Hemoglobin 29.3 pg (28.0-33.3); Mean Platelet Volume 10.6 fL (9.4-12.4); Monocytes # 0.3 K/mcL (0.0-1.3); Monocytes % 3.9 %; Neutrophils # 6.3 K/mcL (1.6-8.9); Platelet Count 181 K/mcL (140-400); Red Cell Distribution Width 13.9 % (11.5-14.5); Segmented Neutrophils % 87.6 %; White Blood Count 7.2 K/mcL (4.3-11.1)
[2021-08-23 03:43] LABS: Phosphorous 3.2 mg/dL (2.7-4.5); Uric Acid 5.6 mg/dL (2.3-7.6)
[2021-08-23 03:47] LABS: BUN/Creatinine Ratio 31 (6-26); Blood Urea Nitrogen 45 mg/dL (8-23); Carbon Dioxide 35 mEq/L (23-29); Chloride 94 mEq/L (98-107); Glucose 438 mg/dL (70-105); Osmolality,Calculated 306 (280-300); Potassium 5.8 mEq/L (3.5-5.1); Sodium 133 mEq/L (136-145); eGFR For African Americans > 60 (> 60); eGFR For Non-African Americans 50 (> 60)
[2021-08-23 03:57] LABS: Thyroid Stimulating Hormone 1.394 mcIU/mL (0.340-5.600)
[2021-08-23 04:07] LABS: Vitamin B12 323 pg/mL (250-1100)
[2021-08-23 04:15] LABS: Vitamin D 25 Hydroxy 41 ng/mL (30-80)
[2021-08-23] MEDS: *HR* Heparin 5,000 UNIT/ML VIAL SQ SCH ×2 (05:38→16:44)
[2021-08-23] MEDS: MethylPREDNISolone 40 MG/ML VIAL IVP SCH ×2 (05:38→16:45)
[2021-08-23] MEDS: Insulin LISPRO 300 UNITS/3 ML VIAL SUBQ SCH ×3 (07:37→15:40)
[2021-08-23] MEDS: Budesonide/Formoterol 160/4.5 1 PUFF INH IH SCH ×2 (08:14→20:33)
[2021-08-23] MEDS: Pregabalin 50 MG CAPSULE PO SCH ×2 (08:29→20:51)
[2021-08-23] MEDS: Doxycycline 100 MG CAPSULE PO SCH ×2 (08:29→20:51)
[2021-08-23] MEDS: Piperacillin/Tazobactam 3.375 GM in 0.9 % Sodium Chloride Mini Bag 100 ML IVPB SCH ×2 (08:29→15:40)
[2021-08-23] MEDS: Insulin DETEMIR 100 UNIT/ML X5UNITS SUBQ SCH ×2 (08:30→20:56)
[2021-08-23] MEDS: Nicotine 21 MG PATCH.TD24 TD SCH (08:30)
[2021-08-23] MEDS: SODIUM ZIRCONIUM CYCLOSILICATE 5 GM POWD.PACK PO SCH (08:58)
[2021-08-24] MEDS: Albuterol 2.5 MG/3 ML NEBULIZER IH SCH ×4 (00:04→11:25)
[2021-08-24] MEDS: Piperacillin/Tazobactam 3.375 GM in 0.9 % Sodium Chloride Mini Bag 100 ML IVPB SCH ×2 (01:33→08:36)
[2021-08-24 02:48] LABS: Basophils % 0.3 %; Eosinophils # 0.1 K/mcL (0.0-0.6); Hematocrit 39.3 % (37.5-50.1); Hemoglobin 12.2 g/dL (12.9-16.9); Immature Granulocytes % 1.2 % (0-4); Lymphocytes # 1.3 K/mcL (0.6-4.6); Mean Corpuscular Hemoglobin 29.5 pg (28.0-33.3); Mean Corpuscular Volume 94.9 fL (83.0-100.0); Mean Platelet Volume 10.4 fL (9.4-12.4); Monocytes # 0.4 K/mcL (0.0-1.3); Monocytes % 6.4 %; Neutrophils # 4.2 K/mcL (1.6-8.9); Platelet Count 177 K/mcL (140-400); Red Blood Count 4.14 M/mcL (4.19-5.50); Red Cell Distribution Width 13.8 % (11.5-14.5); Segmented Neutrophils % 70.1 %; White Blood Count 5.9 K/mcL (4.3-11.1)
[2021-08-24 03:04] LABS: BUN/Creatinine Ratio 32 (6-26); Blood Urea Nitrogen 40 mg/dL (8-23); Calcium 9.4 mg/dL (8.6-10.3); Carbon Dioxide 35 mEq/L (23-29); Chloride 94 mEq/L (98-107); Glucose 225 mg/dL (70-105); Osmolality,Calculated 299 (280-300); Potassium 4.7 mEq/L (3.5-5.1); Sodium 136 mEq/L (136-145); eGFR For African Americans > 60 (> 60); eGFR For Non-African Americans 58 (> 60)
[2021-08-24] MEDS: *HR* Heparin 5,000 UNIT/ML VIAL SQ SCH (05:24)
[2021-08-24 05:29] VITALS: BP 113/66; PULSE 73; TEMP 98.1
[2021-08-24] MEDS: MethylPREDNISolone 40 MG/ML VIAL IVP SCH (06:18)
[2021-08-24] MEDS: Budesonide/Formoterol 160/4.5 1 PUFF INH IH SCH (07:30)
[2021-08-24] MEDS: SODIUM ZIRCONIUM CYCLOSILICATE 5 GM POWD.PACK PO SCH (08:34)
[2021-08-24] MEDS: Pregabalin 50 MG CAPSULE PO SCH (08:37)
[2021-08-24] MEDS: Doxycycline 100 MG CAPSULE PO SCH (08:38)
[2021-08-24] MEDS: Nicotine 21 MG PATCH.TD24 TD SCH (08:39)
[2021-08-24] MEDS: Insulin LISPRO 300 UNITS/3 ML VIAL SUBQ SCH ×2 (08:48→14:01)
[2021-08-24] MEDS: Insulin DETEMIR 100 UNIT/ML X5UNITS SUBQ SCH (08:49)
[2021-08-24] MEDS ORDERED: Ammonium Lactate 30 APPL/225 GM BOTTLE TP SCH (12:00)
[2021-08-24 13:57] VITALS: O2SAT 88
[2021-08-26 02:37] LABS: Alpha 2 Globulin (PEP) 0.86 g/dL (0.48-1.05); Beta Globulin (PEP) 0.78 g/dL (0.48-1.10)
[2021-08-26 11:10] LABS: IFE Reflexed NOT DONE
== END 2021-08-24 16:47 | disposition home or self-care (01) | DRG 193 ==
LOC: 2NENU → SUATTDRO 16:44
PROVIDERS: ADMIT Internal Medicine; ATTEND Internal Medicine

== ENCOUNTER 2021-09-22 19:53 | Inpatient (IN) ==
[2021-09-22 20:21] LABS: Basophils % 0.5 %; Eosinophils # 0.2 K/mcL (0.0-0.6); Eosinophils % 2.3 %; Hematocrit 42.3 % (37.5-50.1); Immature Granulocytes % 0.9 % (0-4); Lymphocytes # 1.3 K/mcL (0.6-4.6); Lymphocytes % 19.5 %; Mean Corpuscular HGB Conc 30.7 g/dL (31.6-35.5); Mean Corpuscular Hemoglobin 29.7 pg (28.0-33.3); Mean Corpuscular Volume 96.6 fL (83.0-100.0); Mean Platelet Volume 10.2 fL (9.4-12.4); Monocytes # 0.6 K/mcL (0.0-1.3); Neutrophils # 4.5 K/mcL (1.6-8.9); Platelet Count 142 K/mcL (140-400); Red Blood Count 4.38 M/mcL (4.19-5.50); Red Cell Distribution Width 15.9 % (11.5-14.5); Segmented Neutrophils % 67.8 %; White Blood Count 6.6 K/mcL (4.3-11.1)
[2021-09-22 20:24] LABS: VBG HCO3 42 mEq/L (21-27); VBG PCO2 79 mmHg (41-51); VBG PH 7.34 pH Units (7.32-7.42); VBG PO2 37 mmHg (25-50)
[2021-09-22 20:28] LABS: INR 1.1; Prothrombin Time 11.9 Seconds (9.4-12.1)
[2021-09-22 20:31] LABS: Activated Partial Thrombo Time 40.2 Seconds (26.0-36.0)
[2021-09-22] MEDS ORDERED: Ipratropium/Albuterol Neb 3 ML IH ONE (20:34)
[2021-09-22] MEDS ORDERED: methylPREDNISolone 125 MG/2 ML VIAL IVP ONE (20:34)
[2021-09-22 20:54] LABS: Alanine Aminotransferase 12 Units/L (7-52); Albumin 3.8 g/dL (3.5-5.7); Albumin/Globulin Ratio 1.3 (1.1-2.2); Alkaline Phosphatase 87 Units/L (34-104); Aspartate Amino Transferase 13 Units/L (13-39); BUN/Creatinine Ratio 20 (6-26); Bilirubin,Direct 0.1 mg/dL (0.0-0.2); Bilirubin,Indirect 0.6 mg/dL (0.0-1.0); Bilirubin,Total 0.7 mg/dL (0.3-1.0); Blood Urea Nitrogen 26 mg/dL (8-23); Calcium 9.1 mg/dL (8.6-10.3); Carbon Dioxide 44 mEq/L (23-29); Chloride 91 mEq/L (98-107); Globulin 2.9 g/dL (2.4-3.5); Glucose 176 mg/dL (70-105); Osmolality,Calculated 299 (280-300); Potassium 4.5 mEq/L (3.5-5.1); Sodium 140 mEq/L (136-145); Total Protein 6.7 g/dL (6.4-8.9); Troponin I < 0.03 ng/mL (< 0.04); eGFR For African Americans > 60 (> 60); eGFR For Non-African Americans 58 (> 60)
[2021-09-22 20:56] LABS: ABG Base Excess 15 mEq/L (-2 to 3); ABG HCO3 44 mEq/L (21-27); ABG Oxygen Saturation 93 % (95-98); ABG PCO2 75 mmHg (35-45); ABG PH 7.38 pH Units (7.32-7.45); ABG PO2 71 mmHg (85-104); ABG TCO2 46 mEq/L (20-26)
[2021-09-23] MEDS ORDERED: cefTRIAXone 1,000 MG in 0.9 % Sodium Chloride 10 ML IVP ONE (00:55)
[2021-09-23] MEDS ORDERED: Azithromycin 500 MG in 0.9 % Sodium Chloride 250 ML IVPB ONE (00:55)
[2021-09-23] MEDS ORDERED: Melatonin 3 MG TABLET PO PRN (00:58)
[2021-09-23] MEDS ORDERED: Naloxone 0.4 MG/ML INJ IVP PRN (00:58)
[2021-09-23] MEDS ORDERED: *HR* Dextrose 50 % in Water (Syg) 50 ML SYRINGE IVP PRN (01:04)
[2021-09-23] MEDS ORDERED: D5% in Water 1,000 ML IVC PRN (01:04)
[2021-09-23] MEDS ORDERED: Dextrose 4 GM Chewable Tablets PO PRN ×2 (01:04)
[2021-09-23 01:23] LABS: ABG Base Excess 14 mEq/L (-2 to 3); ABG HCO3 45 mEq/L (21-27); ABG Oxygen Saturation 91 % (95-98); ABG PCO2 88 mmHg (35-45); ABG PH 7.31 pH Units (7.32-7.45); ABG PO2 70 mmHg (85-104); ABG TCO2 47 mEq/L (20-26)
[2021-09-23 01:39] LABS: Influenza A PCR Negative (Negative); Influenza B PCR Negative (Negative); Resp. Syncytial Virus PCR Negative (Negative)
[2021-09-23 01:40] LABS: SARS-CoV-2 by PCR (In House) Negative (Negative)
[2021-09-23] MEDS: Ipratropium/Albuterol Neb 3 ML IH SCH ×4 (04:05→20:57)
[2021-09-23] MEDS: *HR* Heparin 5,000 UNIT/ML VIAL SQ SCH ×2 (04:45→17:39)
[2021-09-23] MEDS: Insulin LISPRO 300 UNITS/3 ML VIAL SUBQ SCH ×3 (04:46→17:40)
[2021-09-23 08:29] LABS: ABG Base Excess 11 mEq/L (-2 to 3); ABG HCO3 40 mEq/L (21-27); ABG Oxygen Saturation 96 % (95-98); ABG PCO2 72 mmHg (35-45); ABG PH 7.35 pH Units (7.32-7.45); ABG PO2 89 mmHg (85-104); ABG TCO2 42 mEq/L (20-26)
[2021-09-23] MEDS: MethylPREDNISolone 40 MG/ML VIAL IVP SCH ×2 (09:06→16:08)
[2021-09-23] MEDS: Polymyxn-B/Trimeth Opth Drops 10 ML BOTTLE LEFT EYE SCH ×4 (09:10→21:28)
[2021-09-23] MEDS: Polymyxn-B/Trimeth Opth Drops 10 ML BOTTLE RIGHT EYE SCH ×4 (09:10→21:28)
[2021-09-23] MEDS ORDERED: Budesonide/Formoterol 160/4.5 1 PUFF INH IH SCH (10:00)
[2021-09-23 10:39] LABS: Mean Corpuscular HGB Conc 31.6 g/dL (31.6-35.5); Mean Corpuscular Hemoglobin 29.5 pg (28.0-33.3); Mean Corpuscular Volume 93.2 fL (83.0-100.0)
[2021-09-23 10:41] LABS: Hematocrit 41.4 % (37.5-50.1); Hemoglobin 13.1 g/dL (12.9-16.9); Immature Platelets 5.3 % (1.1-6.1); Mean Platelet Volume 10.1 fL (9.4-12.4); Red Blood Count 4.44 M/mcL (4.19-5.50); Red Cell Distribution Width 15.1 % (11.5-14.5)
[2021-09-23 11:05] LABS: BUN/Creatinine Ratio 21 (6-26); Blood Urea Nitrogen 26 mg/dL (8-23); Calcium 9.1 mg/dL (8.6-10.3); Carbon Dioxide 40 mEq/L (23-29); Chloride 93 mEq/L (98-107); Glucose 317 mg/dL (70-105); Magnesium 1.5 mg/dL (1.6-2.6); Osmolality,Calculated 305 (280-300); Phosphorous 2.1 mg/dL (2.7-4.5); Sodium 139 mEq/L (136-145); eGFR For African Americans > 60 (> 60); eGFR For Non-African Americans > 60 (> 60)
[2021-09-23] MEDS ORDERED: ALPRAZolam 0.5 MG TABLET PO ONE (11:47)
[2021-09-23] MEDS: Furosemide 40 MG TABLET PO SCH ×2 (16:08→21:27)
[2021-09-23 19:18] LABS: Bilirubin,Urine Negative (Negative); Blood,Urine Negative (Negative); Clarity,Urine Clear (Clear); Color,Urine Light-Yellow (Yellow); Glucose,Urine (UA) >=1000 mg/dL (Normal); Ketones,Urine Negative (Negative); Leukocyte Esterase,Urine Negative (Negative); Nitrite,Urine Negative (Negative); PH,Urine 7.5 pH Units (5.0-8.0); Protein,Urine 50 mg/dL (Neg-Trace); RBC,Urine 0-3 per hpf (0-3); Specific Gravity,Urine 1.022 (1.010-1.025); Squamous Epithelial Cell,Urine Few per hpf (None-Few); WBC,Urine 0-3 per hpf (0-3)
[2021-09-23 19:48] LABS: Amphetamine Screen,Urine Negative ng/mL (Cutoff=1000); Barbiturate Screen,Urine Negative ng/mL (Cutoff=200); Benzodiazepines Screen,Urine Negative ng/mL (Cutoff=200); Cannabinoid Screen,Urine Negative ng/mL (Cutoff = 50); Cocaine Screen,Urine Negative ng/mL (Cutoff= 300); Opiate Screen,Urine Negative ng/mL (Cutoff=300); Phencyclidine Screen,Urine Negative ng/mL (Cutoff=25)
[2021-09-23] MEDS: Budesonide/Formoterol 160/4.5 1 PUFF INH IH SCH (20:58)
[2021-09-23] MEDS: Insulin DETEMIR 100 UNIT/ML X5UNITS SUBQ SCH (21:27)
[2021-09-23] MEDS: Pregabalin 75 MG CAPSULE PO SCH (21:27)
[2021-09-24] MEDS: MethylPREDNISolone 40 MG/ML VIAL IVP SCH ×3 (00:44→16:57)
[2021-09-24] MEDS: Insulin LISPRO 300 UNITS/3 ML VIAL SUBQ SCH ×5 (00:46→23:22)
[2021-09-24] MEDS ORDERED: Insulin LISPRO 300 UNITS/3 ML VIAL SUBQ ONE (03:21)
[2021-09-24] MEDS: Ipratropium/Albuterol Neb 3 ML IH SCH ×4 (04:05→20:01)
[2021-09-24 05:45] LABS: BUN/Creatinine Ratio 25 (6-26); Blood Urea Nitrogen 32 mg/dL (8-23); Calcium 8.8 mg/dL (8.6-10.3); Carbon Dioxide 40 mEq/L (23-29); Chloride 92 mEq/L (98-107); Glucose 347 mg/dL (70-105); Magnesium 1.9 mg/dL (1.6-2.6); Osmolality,Calculated 305 (280-300); Phosphorous 2.2 mg/dL (2.7-4.5); Potassium 4.7 mEq/L (3.5-5.1); Sodium 137 mEq/L (136-145); eGFR For African Americans > 60 (> 60); eGFR For Non-African Americans 57 (> 60)
[2021-09-24 05:46] LABS: Basophils % 0.1 %; Hemoglobin 11.6 g/dL (12.9-16.9); Immature Granulocytes % 0.6 % (0-4); Lymphocytes # 0.4 K/mcL (0.6-4.6); Lymphocytes % 6.3 %; Mean Corpuscular HGB Conc 31.4 g/dL (31.6-35.5); Mean Corpuscular Hemoglobin 29.5 pg (28.0-33.3); Mean Corpuscular Volume 94.1 fL (83.0-100.0); Mean Platelet Volume 10.7 fL (9.4-12.4); Monocytes # 0.3 K/mcL (0.0-1.3); Monocytes % 4.6 %; Platelet Count 140 K/mcL (140-400); Red Blood Count 3.93 M/mcL (4.19-5.50); Red Cell Distribution Width 14.9 % (11.5-14.5); Segmented Neutrophils % 88.4 %; White Blood Count 6.8 K/mcL (4.3-11.1)
[2021-09-24] MEDS: *HR* Heparin 5,000 UNIT/ML VIAL SQ SCH ×2 (05:56→16:57)
[2021-09-24] MEDS: Furosemide 40 MG TABLET PO SCH ×3 (09:16→21:03)
[2021-09-24] MEDS: Azithromycin 250 MG TABLET PO SCH (09:17)
[2021-09-24] MEDS: Pregabalin 75 MG CAPSULE PO SCH ×2 (09:17→21:00)
[2021-09-24] MEDS: cefTRIAXone 1,000 MG in 0.9 % Sodium Chloride 10 ML IVP SCH (09:18)
[2021-09-24] MEDS: Polymyxn-B/Trimeth Opth Drops 10 ML BOTTLE RIGHT EYE SCH ×4 (09:20→21:29)
[2021-09-24] MEDS: Polymyxn-B/Trimeth Opth Drops 10 ML BOTTLE LEFT EYE SCH ×4 (09:20→21:29)
[2021-09-24] MEDS: Budesonide/Formoterol 160/4.5 1 PUFF INH IH SCH ×2 (11:24→20:05)
[2021-09-24] MEDS: Tiotropium 10 INH DOSE IH SCH (11:25)
[2021-09-24] MEDS: Insulin DETEMIR 100 UNIT/ML X5UNITS SUBQ SCH (21:00)
[2021-09-25] MEDS: MethylPREDNISolone 40 MG/ML VIAL IVP SCH ×3 (00:47→16:17)
[2021-09-25] MEDS: Insulin LISPRO 300 UNITS/3 ML VIAL SUBQ SCH ×5 (00:49→23:03)
[2021-09-25] MEDS ORDERED: Insulin DETEMIR 100 UNIT/ML X5UNITS SUBQ ONE (01:39)
[2021-09-25] MEDS: Ipratropium/Albuterol Neb 3 ML IH SCH ×4 (03:34→20:29)
[2021-09-25] MEDS ORDERED: Insulin LISPRO 300 UNITS/3 ML VIAL SUBQ ONE (03:49)
[2021-09-25 03:59] LABS: Basophils % 0.1 %; Hematocrit 36.2 % (37.5-50.1); Hemoglobin 11.2 g/dL (12.9-16.9); Immature Granulocytes % 0.7 % (0-4); Lymphocytes # 0.4 K/mcL (0.6-4.6); Lymphocytes % 5.2 %; Mean Corpuscular HGB Conc 30.9 g/dL (31.6-35.5); Mean Corpuscular Hemoglobin 29.4 pg (28.0-33.3); Mean Platelet Volume 10.6 fL (9.4-12.4); Monocytes # 0.3 K/mcL (0.0-1.3); Monocytes % 4.9 %; Platelet Count 145 K/mcL (140-400); Red Blood Count 3.81 M/mcL (4.19-5.50); Red Cell Distribution Width 15.3 % (11.5-14.5); Segmented Neutrophils % 89.1 %; White Blood Count 6.7 K/mcL (4.3-11.1)
[2021-09-25 04:18] LABS: BUN/Creatinine Ratio 27 (6-26); Blood Urea Nitrogen 35 mg/dL (8-23); Calcium 8.7 mg/dL (8.6-10.3); Carbon Dioxide 38 mEq/L (23-29); Chloride 91 mEq/L (98-107); Glucose 475 mg/dL (70-105); Magnesium 1.8 mg/dL (1.6-2.6); Osmolality,Calculated 307 (280-300); Phosphorous 3.3 mg/dL (2.7-4.5); Potassium 4.9 mEq/L (3.5-5.1); Sodium 134 mEq/L (136-145); eGFR For African Americans > 60 (> 60); eGFR For Non-African Americans 56 (> 60)
[2021-09-25] MEDS: *HR* Heparin 5,000 UNIT/ML VIAL SQ SCH ×2 (05:19→17:58)
[2021-09-25 06:22] LABS: Estimated Average Glucose 206 mg/dl; Hemoglobin A1C 8.8 %
[2021-09-25] MEDS: Budesonide/Formoterol 160/4.5 1 PUFF INH IH SCH ×2 (07:32→20:29)
[2021-09-25] MEDS: Tiotropium 10 INH DOSE IH SCH (07:35)
[2021-09-25] MEDS: Azithromycin 250 MG TABLET PO SCH (08:10)
[2021-09-25] MEDS: Furosemide 40 MG TABLET PO SCH ×3 (08:10→23:03)
[2021-09-25] MEDS: Pregabalin 75 MG CAPSULE PO SCH ×2 (08:10→23:03)
[2021-09-25] MEDS: cefTRIAXone 1,000 MG in 0.9 % Sodium Chloride 10 ML IVP SCH (08:11)
[2021-09-25] MEDS: Polymyxn-B/Trimeth Opth Drops 10 ML BOTTLE LEFT EYE SCH ×4 (08:13→23:03)
[2021-09-25] MEDS: Polymyxn-B/Trimeth Opth Drops 10 ML BOTTLE RIGHT EYE SCH ×4 (08:13→23:07)
[2021-09-25] MEDS: Insulin DETEMIR 100 UNIT/ML X5UNITS SUBQ SCH (23:03)
[2021-09-26] MEDS: MethylPREDNISolone 40 MG/ML VIAL IVP SCH ×2 (00:27→08:51)
[2021-09-26] MEDS: Insulin LISPRO 300 UNITS/3 ML VIAL SUBQ SCH ×3 (00:28→12:22)
[2021-09-26] MEDS: Ipratropium/Albuterol Neb 3 ML IH SCH ×3 (03:55→15:28)
[2021-09-26 06:28] LABS: Hematocrit 38.4 % (37.5-50.1); Hemoglobin 12.2 g/dL (12.9-16.9); Lymphocytes % 9.8 %; Mean Corpuscular HGB Conc 31.8 g/dL (31.6-35.5); Mean Corpuscular Hemoglobin 29.5 pg (28.0-33.3); Mean Platelet Volume 10.5 fL (9.4-12.4); Monocytes % 7.6 %; Platelet Count 151 K/mcL (140-400); Red Blood Count 4.13 M/mcL (4.19-5.50); Red Cell Distribution Width 14.8 % (11.5-14.5); Segmented Neutrophils % 80.3 %; White Blood Count 6.5 K/mcL (4.3-11.1)
[2021-09-26 06:29] LABS: Basophils % 0.3 %; Lymphocytes # 0.6 K/mcL (0.6-4.6); Monocytes # 0.5 K/mcL (0.0-1.3); Neutrophils # 5.2 K/mcL (1.6-8.9)
[2021-09-26 06:43] VITALS: BP 138/81; PULSE 64; TEMP 98.2
[2021-09-26 06:51] LABS: Calcium 9.4 mg/dL (8.6-10.3); Potassium 4.3 mEq/L (3.5-5.1)
[2021-09-26] MEDS: Tiotropium 10 INH DOSE IH SCH (07:11)
[2021-09-26] MEDS: Budesonide/Formoterol 160/4.5 1 PUFF INH IH SCH (07:24)
[2021-09-26] MEDS: *HR* Heparin 5,000 UNIT/ML VIAL SQ SCH (08:42)
[2021-09-26] MEDS: Pregabalin 75 MG CAPSULE PO SCH (08:44)
[2021-09-26] MEDS: Azithromycin 250 MG TABLET PO SCH (08:45)
[2021-09-26] MEDS: cefTRIAXone 1,000 MG in 0.9 % Sodium Chloride 10 ML IVP SCH (08:46)
[2021-09-26] MEDS: Polymyxn-B/Trimeth Opth Drops 10 ML BOTTLE RIGHT EYE SCH ×2 (08:46→12:23)
[2021-09-26] MEDS: Polymyxn-B/Trimeth Opth Drops 10 ML BOTTLE LEFT EYE SCH ×2 (08:46→12:22)
[2021-09-26] MEDS: Furosemide 40 MG TABLET PO SCH (08:46)
[2021-09-26] MEDS ORDERED: predniSONE 20 MG TABLET PO SCH (09:00)
[2021-09-26 15:31] VITALS: O2SAT 96
== END 2021-09-26 15:50 | disposition home or self-care (01) | DRG 193 ==
LOC: EMEROOARM 19:53 → 3BNU 19:53 → SUATTDRO 09-23 02:26 → 3BNU 09-23 03:05 → SUATTDRO 09-24 11:15
PROVIDERS: ADMIT Internal Medicine; ATTEND Student in an Organized Health Care Education/Training Program

== ENCOUNTER 2021-11-22 17:09 | Inpatient (IN) ==
[2021-11-22] MEDS ORDERED: Albuterol 2.5 MG/3 ML NEBULIZER IH ONE (17:32)
[2021-11-22] MEDS ORDERED: methylPREDNISolone 125 MG/2 ML VIAL IVP ONE (17:32)
[2021-11-22] MEDS ORDERED: Ipratropium/Albuterol Neb 3 ML IH ONE (17:32)
[2021-11-22 18:11] LABS: Basophils # 0.1 K/mcL (0.0-0.2); Basophils % 0.5 %; Eosinophils # 0.1 K/mcL (0.0-0.6); Eosinophils % 1.2 %; Hemoglobin 14.4 g/dL (12.9-16.9); Immature Granulocytes % 1.1 % (0-4); Immature Platelets 7.4 % (1.1-6.1); Lymphocytes % 11.1 %; Mean Corpuscular Hemoglobin 29.4 pg (28.0-33.3); Mean Corpuscular Volume 98.2 fL (83.0-100.0); Monocytes # 0.7 K/mcL (0.0-1.3); Monocytes % 7.1 %; Neutrophils # 7.4 K/mcL (1.6-8.9); Platelet Count 137 K/mcL (140-400); Red Blood Count 4.89 M/mcL (4.19-5.50); Red Cell Distribution Width 16.2 % (11.5-14.5); White Blood Count 9.3 K/mcL (4.3-11.1)
[2021-11-22 18:23] LABS: ABG Base Excess 11 mEq/L (-2 to 3); ABG HCO3 43 mEq/L (21-27); ABG Oxygen Saturation 90 % (95-98); ABG PCO2 91 mmHg (35-45); ABG PH 7.28 pH Units (7.32-7.45); ABG PO2 70 mmHg (85-104); ABG TCO2 45 mEq/L (20-26)
[2021-11-22 18:30] LABS: Alanine Aminotransferase 18 Units/L (7-52); Albumin 4.2 g/dL (3.5-5.7); Albumin/Globulin Ratio 1.4 (1.1-2.2); Alkaline Phosphatase 106 Units/L (34-104); Aspartate Amino Transferase 17 Units/L (13-39); BUN/Creatinine Ratio 22 (6-26); Bilirubin,Total 0.5 mg/dL (0.3-1.0); Blood Urea Nitrogen 27 mg/dL (8-23); Calcium 9.9 mg/dL (8.6-10.3); Carbon Dioxide 44 mEq/L (23-29); Chloride 96 mEq/L (98-107); Globulin 3.1 g/dL (2.4-3.5); Glucose 84 mg/dL (70-105); Osmolality,Calculated 300 (280-300); Potassium 5.1 mEq/L (3.5-5.1); Sodium 143 mEq/L (136-145); Total Protein 7.3 g/dL (6.4-8.9); Troponin I < 0.03 ng/mL (< 0.04); eGFR For African Americans > 60 (> 60); eGFR For Non-African Americans 59 (> 60)
[2021-11-22] MEDS ORDERED: Azithromycin 250 MG TABLET PO ONE (18:39)
[2021-11-22 18:57] LABS: Adenovirus Not Detected (Not Detect); Bordetella Pertussis Not Detected (Not Detect); Chlamydophila pneumoniae Not Detected (Not Detect); Coronavirus 229E Not Detected (Not Detect); Coronavirus HKU1 Not Detected (Not Detect); Coronavirus NL63 Not Detected (Not Detect); Coronavirus OC43 Not Detected (Not Detect); Human Metapneumovirus Not Detected (Not Detect); Human Rhinovirus/Enterovirus Not Detected (Not Detect); Influenza A Subtype 2009 H1 Not Detected (Not Detect); Influenza B Not Detected (Not Detect); Mycoplasma pneumoniae Not Detected (Not Detect); Parainfluenza Virus 1 Not Detected (Not Detect); Parainfluenza Virus 2 Not Detected (Not Detect); Parainfluenza Virus 3 Not Detected (Not Detect); Parainfluenza Virus 4 Not Detected (Not Detect); Respiratory Syncytial Virus Not Detected (Not Detect); SARS-CoV-2 Not Detected (Not Detect)
[2021-11-23] MEDS ORDERED: Ondansetron ODT 4 MG TAB.RAPDIS SL PRN (02:54)
[2021-11-23] MEDS ORDERED: Naloxone 0.4 MG/ML INJ IVP PRN (02:54)
[2021-11-23] MEDS ORDERED: Melatonin 3 MG TABLET PO PRN (02:54)
[2021-11-23] MEDS ORDERED: D5% in Water 1,000 ML IVC PRN (03:09)
[2021-11-23] MEDS ORDERED: *HR* Dextrose 50 % in Water (Syg) 50 ML SYRINGE IVP PRN (03:09)
[2021-11-23] MEDS ORDERED: Dextrose Gel 15 GM/37.5 ML TUBE PO PRN ×2 (03:09)
[2021-11-23] MEDS: Ipratropium/Albuterol Neb 3 ML IH SCH ×4 (04:15→22:29)
[2021-11-23 04:28] LABS: ABG Base Excess 9 mEq/L (-2 to 3); ABG HCO3 39 mEq/L (21-27); ABG Oxygen Saturation 63 % (95-98); ABG PCO2 83 mmHg (35-45); ABG PH 7.29 pH Units (7.32-7.45); ABG PO2 39 mmHg (85-104); ABG TCO2 42 mEq/L (20-26)
[2021-11-23 05:59] LABS: Basophils % 0.1 %
[2021-11-23] MEDS: *HR* Heparin 5,000 UNIT/ML VIAL SQ SCH ×3 (06:00→21:38)
[2021-11-23] MEDS: Insulin LISPRO 300 UNITS/3 ML VIAL SUBQ SCH ×3 (06:01→20:47)
[2021-11-23 06:02] LABS: Hematocrit 47.4 % (37.5-50.1); Hemoglobin 14.4 g/dL (12.9-16.9); Immature Granulocytes % 0.7 % (0-4); Immature Platelets 7.4 % (1.1-6.1); Lymphocytes # 0.4 K/mcL (0.6-4.6); Lymphocytes % 5.6 %; Mean Corpuscular HGB Conc 30.4 g/dL (31.6-35.5); Mean Corpuscular Hemoglobin 29.6 pg (28.0-33.3); Mean Corpuscular Volume 97.3 fL (83.0-100.0); Mean Platelet Volume 11.2 fL (9.4-12.4); Monocytes % 0.3 %; Neutrophils # 6.3 K/mcL (1.6-8.9); Platelet Count 128 K/mcL (140-400); Red Blood Count 4.87 M/mcL (4.19-5.50); Segmented Neutrophils % 93.3 %; White Blood Count 6.7 K/mcL (4.3-11.1)
[2021-11-23 06:21] LABS: Alanine Aminotransferase 16 Units/L (7-52); Albumin/Globulin Ratio 1.2 (1.1-2.2); Alkaline Phosphatase 98 Units/L (34-104); Aspartate Amino Transferase 14 Units/L (13-39); BUN/Creatinine Ratio 22 (6-26); Bilirubin,Total 0.5 mg/dL (0.3-1.0); Blood Urea Nitrogen 28 mg/dL (8-23); Calcium 9.7 mg/dL (8.6-10.3); Carbon Dioxide 39 mEq/L (23-29); Chloride 95 mEq/L (98-107); Globulin 3.3 g/dL (2.4-3.5); Glucose 237 mg/dL (70-105); Magnesium 1.9 mg/dL (1.6-2.6); Osmolality,Calculated 303 (280-300); Phosphorous 2.6 mg/dL (2.7-4.5); Sodium 140 mEq/L (136-145); Total Protein 7.3 g/dL (6.4-8.9); eGFR For African Americans > 60 (> 60); eGFR For Non-African Americans 59 (> 60)
[2021-11-23] MEDS: Budesonide/Formoterol 160/4.5 1 PUFF INH IH SCH ×2 (09:05→22:29)
[2021-11-23] MEDS: Furosemide 40 MG/4 ML VIAL IVP SCH ×2 (09:19→21:39)
[2021-11-23] MEDS: Pregabalin 75 MG CAPSULE PO SCH ×2 (09:19→21:39)
[2021-11-23 09:21] LABS: ABG Base Excess 11 mEq/L (-2 to 3); ABG HCO3 38 mEq/L (21-27); ABG Oxygen Saturation 93 % (95-98); ABG PCO2 57 mmHg (35-45); ABG PH 7.44 pH Units (7.32-7.45); ABG PO2 66 mmHg (85-104); ABG TCO2 40 mEq/L (20-26)
[2021-11-23] MEDS: MethylPREDNISolone 40 MG/ML VIAL IVP SCH ×2 (09:21→18:01)
[2021-11-23] MEDS: Nicotine 21 MG PATCH.TD24 TD SCH (09:21)
[2021-11-23] MEDS: Azithromycin 500 MG in 0.9 % Sodium Chloride 250 ML IVPB SCH (18:02)
[2021-11-24] MEDS: Insulin LISPRO 300 UNITS/3 ML VIAL SUBQ SCH ×5 (00:05→20:46)
[2021-11-24] MEDS: MethylPREDNISolone 40 MG/ML VIAL IVP SCH ×3 (01:10→14:58)
[2021-11-24] MEDS: Ipratropium/Albuterol Neb 3 ML IH SCH ×4 (04:07→22:14)
[2021-11-24] MEDS: *HR* Heparin 5,000 UNIT/ML VIAL SQ SCH ×3 (06:22→20:47)
[2021-11-24 06:39] LABS: Bacteria,Urine Few per hpf (None-Few); Bilirubin,Urine Negative (Negative); Blood,Urine Negative (Negative); Clarity,Urine Clear (Clear); Color,Urine Colorless (Yellow); Glucose,Urine (UA) 30 mg/dL (Normal); Ketones,Urine Negative (Negative); Leukocyte Esterase,Urine Negative (Negative); Nitrite,Urine Negative (Negative); PH,Urine 6.5 pH Units (5.0-8.0); Protein,Urine 30 mg/dL (Neg-Trace); RBC,Urine 0-3 per hpf (0-3); Specific Gravity,Urine 1.012 (1.010-1.025); Urobilinogen,Urine Normal (Normal); WBC,Urine 0-3 per hpf (0-3)
[2021-11-24] MEDS: Pregabalin 75 MG CAPSULE PO SCH ×2 (08:35→20:39)
[2021-11-24] MEDS: Furosemide 40 MG/4 ML VIAL IVP SCH ×2 (08:36→20:39)
[2021-11-24] MEDS: Nicotine 21 MG PATCH.TD24 TD SCH (08:48)
[2021-11-24] MEDS: Budesonide/Formoterol 160/4.5 1 PUFF INH IH SCH ×2 (10:52→22:14)
[2021-11-24] MEDS: Azithromycin 500 MG in 0.9 % Sodium Chloride 250 ML IVPB SCH (17:12)
[2021-11-24] MEDS: Insulin DETEMIR 100 UNIT/ML X5UNITS SUBQ SCH (20:45)
[2021-11-25] MEDS: MethylPREDNISolone 40 MG/ML VIAL IVP SCH ×4 (01:09→23:04)
[2021-11-25] MEDS: Ipratropium/Albuterol Neb 3 ML IH SCH ×4 (03:44→21:43)
[2021-11-25] MEDS: *HR* Heparin 5,000 UNIT/ML VIAL SQ SCH ×3 (06:02→19:46)
[2021-11-25] MEDS: Furosemide 40 MG/4 ML VIAL IVP SCH ×2 (09:42→19:47)
[2021-11-25] MEDS: Pregabalin 75 MG CAPSULE PO SCH ×2 (09:42→19:47)
[2021-11-25] MEDS: Insulin LISPRO 300 UNITS/3 ML VIAL SUBQ SCH ×4 (09:42→19:47)
[2021-11-25] MEDS: Nicotine 21 MG PATCH.TD24 TD SCH (09:43)
[2021-11-25] MEDS: Budesonide/Formoterol 160/4.5 1 PUFF INH IH SCH ×2 (10:02→21:43)
[2021-11-25] MEDS: Azithromycin 500 MG in 0.9 % Sodium Chloride 250 ML IVPB SCH (17:53)
[2021-11-25] MEDS: *HR* Metformin 850 MG TABLET PO SCH (17:53)
[2021-11-25] MEDS: Insulin DETEMIR 100 UNIT/ML X5UNITS SUBQ SCH (19:47)
[2021-11-26] MEDS: Ipratropium/Albuterol Neb 3 ML IH SCH ×4 (04:16→15:37)
[2021-11-26] MEDS: *HR* Heparin 5,000 UNIT/ML VIAL SQ SCH ×2 (05:10→16:05)
[2021-11-26 07:50] VITALS: PULSE 74
[2021-11-26] MEDS: Insulin LISPRO 300 UNITS/3 ML VIAL SUBQ SCH ×2 (08:58→12:54)
[2021-11-26] MEDS: Nicotine 21 MG PATCH.TD24 TD SCH (09:00)
[2021-11-26] MEDS: *HR* Metformin 850 MG TABLET PO SCH (09:00)
[2021-11-26] MEDS: Pregabalin 75 MG CAPSULE PO SCH (09:00)
[2021-11-26] MEDS: Furosemide 40 MG/4 ML VIAL IVP SCH (09:01)
[2021-11-26] MEDS: MethylPREDNISolone 40 MG/ML VIAL IVP SCH (09:01)
[2021-11-26] MEDS ORDERED: Insulin LISPRO 300 UNITS/3 ML VIAL SUBQ SCH (09:45)
[2021-11-26] MEDS: Budesonide/Formoterol 160/4.5 1 PUFF INH IH SCH (10:35)
[2021-11-26 10:38] VITALS: O2SAT 90
[2021-11-26 11:01] VITALS: BP 152/84; TEMP 97.5
[2021-11-27] MEDS ORDERED: predniSONE 20 MG TABLET PO SCH (09:00)
== END 2021-11-26 16:25 | disposition home or self-care (01) | DRG 190 ==
LOC: EMEROOARM 17:09 → 3NENU 17:09 → SUATTDRO 11-23 02:54 → 3NENU 11-23 04:00
PROVIDERS: ADMIT Internal Medicine; ATTEND Hospitalist

== ENCOUNTER 2022-01-30 18:51 | Inpatient (IN) ==
[2022-01-30] MEDS ORDERED: Furosemide 40 MG/4 ML VIAL IVP ONE (19:05)
[2022-01-30] MEDS ORDERED: methylPREDNISolone 125 MG/2 ML VIAL IVP ONE (19:05)
[2022-01-30] MEDS ORDERED: Ipratropium/Albuterol Neb 3 ML IH ONE (19:05)
[2022-01-30 20:12] LABS: Basophils % 0.4 %; Eosinophils # 0.2 K/mcL (0.0-0.6); Eosinophils % 2.3 %; Hematocrit 44.4 % (37.5-50.1); Hemoglobin 13.9 g/dL (12.9-16.9); Immature Granulocytes % 0.5 % (0-4); Immature Platelets 6.7 % (1.1-6.1); Lymphocytes # 1.3 K/mcL (0.6-4.6); Lymphocytes % 17.4 %; Mean Corpuscular HGB Conc 31.3 g/dL (31.6-35.5); Mean Corpuscular Hemoglobin 29.3 pg (28.0-33.3); Mean Corpuscular Volume 93.5 fL (83.0-100.0); Monocytes # 0.7 K/mcL (0.0-1.3); Monocytes % 9.3 %; Neutrophils # 5.2 K/mcL (1.6-8.9); Nucleated Red Blood Cells 0.3 /100 WBC (0); Platelet Count 154 K/mcL (140-400); Red Blood Count 4.75 M/mcL (4.19-5.50); Red Cell Distribution Width 16.9 % (11.5-14.5); Segmented Neutrophils % 70.1 %; White Blood Count 7.4 K/mcL (4.3-11.1)
[2022-01-30 20:28] LABS: Calcium 9.4 mg/dL (8.6-10.3); Potassium 4.3 mEq/L (3.5-5.1); Troponin I 0.03 ng/mL (< 0.04)
[2022-01-30] MEDS ORDERED: Ondansetron 4 MG/2 ML VIAL IVP PRN (22:28)
[2022-01-30] MEDS ORDERED: Acetaminophen 325 MG TABLET PO PRN (22:28)
[2022-01-30] MEDS ORDERED: Naloxone 0.4 MG/ML INJ IVP PRN (22:28)
[2022-01-30] MEDS ORDERED: D5% in Water 1,000 ML IVC PRN (22:31)
[2022-01-30] MEDS ORDERED: *HR* Dextrose 50 % in Water (Syg) 50 ML SYRINGE IVP PRN (22:31)
[2022-01-30] MEDS ORDERED: Dextrose Gel 15 GM/37.5 ML TUBE PO PRN ×2 (22:31)
[2022-01-31 01:51] LABS: Adenovirus Not Detected (Not Detect); Bordetella Pertussis Not Detected (Not Detect); Chlamydophila pneumoniae Not Detected (Not Detect); Coronavirus 229E Not Detected (Not Detect); Coronavirus HKU1 Not Detected (Not Detect); Coronavirus NL63 Not Detected (Not Detect); Coronavirus OC43 Not Detected (Not Detect); Human Metapneumovirus Not Detected (Not Detect); Human Rhinovirus/Enterovirus Not Detected (Not Detect); Influenza A Subtype 2009 H1 Not Detected (Not Detect); Influenza B Not Detected (Not Detect); Mycoplasma pneumoniae Not Detected (Not Detect); Parainfluenza Virus 1 Not Detected (Not Detect); Parainfluenza Virus 2 Not Detected (Not Detect); Parainfluenza Virus 3 Not Detected (Not Detect); Parainfluenza Virus 4 Not Detected (Not Detect); Respiratory Syncytial Virus Not Detected (Not Detect); SARS-CoV-2 Not Detected (Not Detect)
[2022-01-31 02:04] LABS: Basophils % 0.3 %; Eosinophils % 0.3 %; Hematocrit 42.8 % (37.5-50.1); Hemoglobin 13.5 g/dL (12.9-16.9); Immature Granulocytes % 0.8 % (0-4); Immature Platelets 5.9 % (1.1-6.1); Lymphocytes # 0.4 K/mcL (0.6-4.6); Mean Corpuscular HGB Conc 31.5 g/dL (31.6-35.5); Mean Corpuscular Hemoglobin 29.3 pg (28.0-33.3); Mean Corpuscular Volume 92.8 fL (83.0-100.0); Mean Platelet Volume 10.7 fL (9.4-12.4); Monocytes # 0.1 K/mcL (0.0-1.3); Monocytes % 0.9 %; Neutrophils # 6.9 K/mcL (1.6-8.9); Platelet Count 123 K/mcL (140-400); Red Blood Count 4.61 M/mcL (4.19-5.50); Red Cell Distribution Width 16.2 % (11.5-14.5); Segmented Neutrophils % 92.7 %; White Blood Count 7.4 K/mcL (4.3-11.1)
[2022-01-31 02:05] LABS: VBG HCO3 41 mEq/L (21-27); VBG PCO2 81 mmHg (41-51); VBG PH 7.31 pH Units (7.32-7.42); VBG PO2 70 mmHg (25-50)
[2022-01-31 02:10] LABS: INR 1.1; Prothrombin Time 11.7 Seconds (9.4-12.1)
[2022-01-31 02:54] LABS: Alanine Aminotransferase 12 Units/L (7-52); Albumin 3.8 g/dL (3.5-5.7); Albumin/Globulin Ratio 1.4 (1.1-2.2); Alkaline Phosphatase 73 Units/L (34-104); Aspartate Amino Transferase 12 Units/L (13-39); BUN/Creatinine Ratio 20 (6-26); Bilirubin,Direct 0.1 mg/dL (0.0-0.2); Bilirubin,Indirect 0.3 mg/dL (0.0-1.0); Bilirubin,Total 0.4 mg/dL (0.3-1.0); Blood Urea Nitrogen 33 mg/dL (8-23); Carbon Dioxide 40 mEq/L (23-29); Chloride 92 mEq/L (98-107); Globulin 2.8 g/dL (2.4-3.5); Glucose 246 mg/dL (70-105); Magnesium 1.7 mg/dL (1.6-2.6); Osmolality,Calculated 303 (280-300); Potassium 4.7 mEq/L (3.5-5.1); Sodium 139 mEq/L (136-145); Thyroid Stimulating Hormone 1.826 mcIU/mL (0.340-5.600); Total Protein 6.6 g/dL (6.4-8.9); Troponin I < 0.03 ng/mL (< 0.04)
[2022-01-31] MEDS ORDERED: Tiotropium 10 INH DOSE IH ONE (04:18)
[2022-01-31] MEDS: MethylPREDNISolone 40 MG/ML VIAL IVP SCH ×2 (05:36→16:48)
[2022-01-31 06:25] LABS: Bilirubin,Urine Negative (Negative); Blood,Urine Negative (Negative); Clarity,Urine Clear (Clear); Color,Urine Light-Yellow (Yellow); Glucose,Urine (UA) 500 mg/dL (Normal); Ketones,Urine Trace mg/dL (Negative); Leukocyte Esterase,Urine Negative (Negative); Mucus,Urine Few per lpf (None-Few); Nitrite,Urine Negative (Negative); PH,Urine 6.5 pH Units (5.0-8.0); Protein,Urine 70 mg/dL (Neg-Trace); Specific Gravity,Urine 1.013 (1.010-1.025); Squamous Epithelial Cell,Urine Few per hpf (None-Few); Urobilinogen,Urine Normal (Normal); WBC,Urine 0-3 per hpf (0-3)
[2022-01-31 06:59] LABS: Amphetamine Screen,Urine Negative ng/mL (Cutoff=1000); Barbiturate Screen,Urine Negative ng/mL (Cutoff=200)
[2022-01-31 07:00] LABS: Benzodiazepines Screen,Urine Negative ng/mL (Cutoff=300); Cannabinoid Screen,Urine Negative ng/mL (Cutoff = 50); Cocaine Screen,Urine Negative ng/mL (Cutoff= 300); Opiate Screen,Urine Negative ng/mL (Cutoff=300); Phencyclidine Screen,Urine Negative ng/mL (Cutoff=25)
[2022-01-31] MEDS: Budesonide/Formoterol 160/4.5 1 PUFF INH IH SCH ×2 (07:40→22:25)
[2022-01-31] MEDS: amLODIPine 5 MG TABLET PO SCH (07:41)
[2022-01-31] MEDS: *HR* Glimepiride 4 MG TABLET PO SCH (07:41)
[2022-01-31] MEDS: Aspirin 81 MG TAB.CHEW PO SCH (07:41)
[2022-01-31] MEDS: Pregabalin 75 MG CAPSULE PO SCH ×2 (07:41→22:07)
[2022-01-31] MEDS: Tiotropium 10 INH DOSE IH SCH (07:42)
[2022-01-31] MEDS: Insulin LISPRO 300 UNITS/3 ML VIAL SUBQ SCH ×3 (07:42→16:29)
[2022-01-31 07:58] LABS: ABG Base Excess 10 mEq/L (-2 to 3); ABG HCO3 39 mEq/L (21-27); ABG Oxygen Saturation 91 % (95-98); ABG PCO2 70 mmHg (35-45); ABG PH 7.35 pH Units (7.32-7.45); ABG PO2 68 mmHg (85-104); ABG TCO2 41 mEq/L (20-26)
[2022-01-31] MEDS ORDERED: levoFLOXacin 750 MG TABLET PO SCH (09:00)
[2022-01-31] MEDS: Furosemide 20 MG/2 ML VIAL IVP SCH (16:47)
[2022-01-31] MEDS: Insulin DETEMIR 100 UNIT/ML X5UNITS SUBQ SCH (22:07)
[2022-02-01 03:02] LABS: Basophils % 0.1 %; Hematocrit 39.3 % (37.5-50.1); Hemoglobin 12.5 g/dL (12.9-16.9); Mean Corpuscular HGB Conc 31.8 g/dL (31.6-35.5); Monocytes % 2.9 %; Red Cell Distribution Width 15.9 % (11.5-14.5)
[2022-02-01 03:03] LABS: Immature Granulocytes % 0.7 % (0-4); Immature Platelets 6.3 % (1.1-6.1); Lymphocytes # 0.6 K/mcL (0.6-4.6); Lymphocytes % 6.7 %; Mean Corpuscular Hemoglobin 29.1 pg (28.0-33.3); Mean Corpuscular Volume 91.4 fL (83.0-100.0); Mean Platelet Volume 10.9 fL (9.4-12.4); Monocytes # 0.3 K/mcL (0.0-1.3); Neutrophils # 7.6 K/mcL (1.6-8.9); Platelet Count 149 K/mcL (140-400); Segmented Neutrophils % 89.6 %; White Blood Count 8.5 K/mcL (4.3-11.1)
[2022-02-01 03:09] LABS: Calcium 8.9 mg/dL (8.6-10.3); Magnesium 1.8 mg/dL (1.6-2.6); Phosphorous 2.8 mg/dL (2.7-4.5); Potassium 4.6 mEq/L (3.5-5.1)
[2022-02-01] MEDS: MethylPREDNISolone 40 MG/ML VIAL IVP SCH (05:40)
[2022-02-01] MEDS: *HR* Enoxaparin 40 MG/0.4 ML SYRINGE SQ SCH (05:41)
[2022-02-01] MEDS: Furosemide 20 MG/2 ML VIAL IVP SCH (09:01)
[2022-02-01] MEDS: Nicotine 21 MG PATCH.TD24 TD SCH (09:01)
[2022-02-01] MEDS: Insulin LISPRO 300 UNITS/3 ML VIAL SUBQ SCH ×2 (09:01→12:45)
[2022-02-01] MEDS: *HR* Glimepiride 4 MG TABLET PO SCH (09:02)
[2022-02-01] MEDS: amLODIPine 5 MG TABLET PO SCH (09:02)
[2022-02-01] MEDS: Pregabalin 75 MG CAPSULE PO SCH ×2 (09:02→21:06)
[2022-02-01] MEDS: Cholecalciferol (D-3) 1,000 UNIT (25MCG) TABLET PO SCH (09:02)
[2022-02-01] MEDS: Aspirin 81 MG TAB.CHEW PO SCH (09:02)
[2022-02-01] MEDS: Budesonide/Formoterol 160/4.5 1 PUFF INH IH SCH ×2 (10:53→20:37)
[2022-02-01] MEDS: Tiotropium 10 INH DOSE IH SCH (10:54)
[2022-02-01] MEDS ORDERED: Furosemide 20 MG/2 ML VIAL IVP ONE (17:55)
[2022-02-01] MEDS ORDERED: MethylPREDNISolone 40 MG/ML VIAL ONE (17:55)
[2022-02-01] MEDS ORDERED: Budesonide/Formoterol 160/4.5 1 PUFF INH IH ONE (20:34)
[2022-02-01] MEDS: Insulin DETEMIR 100 UNIT/ML X5UNITS SUBQ SCH (21:06)
[2022-02-02] MEDS: MethylPREDNISolone 40 MG/ML VIAL IVP SCH (06:32)
[2022-02-02] MEDS: *HR* Enoxaparin 40 MG/0.4 ML SYRINGE SQ SCH (06:33)
[2022-02-02] MEDS: Insulin LISPRO 300 UNITS/3 ML VIAL SUBQ SCH ×2 (07:14→09:13)
[2022-02-02 07:24] VITALS: BP 120/81; PULSE 63; TEMP 98; O2SAT 95
[2022-02-02] MEDS ORDERED: levoFLOXacin 750 MG TABLET PO SCH (09:00)
[2022-02-02 09:02] LABS: Calcium 9.4 mg/dL (8.6-10.3); Potassium 4.9 mEq/L (3.5-5.1)
[2022-02-02] MEDS: Aspirin 81 MG TAB.CHEW PO SCH (09:10)
[2022-02-02] MEDS: Pregabalin 75 MG CAPSULE PO SCH (09:11)
[2022-02-02] MEDS: Cholecalciferol (D-3) 1,000 UNIT (25MCG) TABLET PO SCH (09:11)
[2022-02-02] MEDS: Nicotine 21 MG PATCH.TD24 TD SCH (09:11)
[2022-02-02] MEDS: amLODIPine 5 MG TABLET PO SCH (09:11)
[2022-02-02] MEDS: Budesonide/Formoterol 160/4.5 1 PUFF INH IH SCH (09:47)
[2022-02-02] MEDS: Tiotropium 10 INH DOSE IH SCH (09:47)
== END 2022-02-02 11:04 | disposition home or self-care (01) | DRG 291 ==
LOC: EMEROOARM 18:51 → 2ANU 18:51 → SUATTDRO 21:44 → 2ANU 22:54
PROVIDERS: ADMIT Internal Medicine; ATTEND Internal Medicine

== ENCOUNTER 2022-02-23 17:54 | Inpatient (IN) ==
[2022-02-23] MEDS ORDERED: Iopamidol - 370 500 ML MLS IVP ONE (18:45)
[2022-02-23] MEDS ORDERED: cefTRIAXone 1,000 MG in 0.9 % Sodium Chloride 10 ML IVP ONE (18:46)
[2022-02-23 19:15] LABS: ABG Base Excess 19 mEq/L (-2 to 3); ABG HCO3 51 mEq/L (21-27); ABG Oxygen Saturation 87 % (95-98); ABG PCO2 98 mmHg (35-45); ABG PH 7.32 pH Units (7.32-7.45); ABG PO2 63 mmHg (85-104); ABG TCO2 > 50 mEq/L (20-26)
[2022-02-23 19:40] LABS: Basophils # 0.1 K/mcL (0.0-0.2); Basophils % 0.5 %; Eosinophils # 0.1 K/mcL (0.0-0.6); Eosinophils % 1.2 %; Hematocrit 41.6 % (37.5-50.1); Hemoglobin 12.9 g/dL (12.9-16.9); Immature Granulocytes % 1.1 % (0-4); Lymphocytes # 1.4 K/mcL (0.6-4.6); Lymphocytes % 12.9 %; Mean Corpuscular Hemoglobin 29.6 pg (28.0-33.3); Mean Corpuscular Volume 95.4 fL (83.0-100.0); Mean Platelet Volume 11.1 fL (9.4-12.4); Monocytes # 0.8 K/mcL (0.0-1.3); Monocytes % 7.7 %; Nucleated Red Blood Cells 0.5 /100 WBC (0); Platelet Count 126 K/mcL (140-400); Red Blood Count 4.36 M/mcL (4.19-5.50); Red Cell Distribution Width 16.8 % (11.5-14.5); Segmented Neutrophils % 76.6 %; White Blood Count 10.5 K/mcL (4.3-11.1)
[2022-02-23 19:52] LABS: Prothrombin Time 11.6 Seconds (9.4-12.1)
[2022-02-23 19:55] LABS: Activated Partial Thrombo Time 40.5 Seconds (26.0-36.0)
[2022-02-23 20:12] LABS: Albumin/Globulin Ratio 1.4 (1.1-2.2); Bilirubin,Direct 0.1 mg/dL (0.0-0.2); Bilirubin,Indirect 0.4 mg/dL (0.0-1.0); Bilirubin,Total 0.5 mg/dL (0.3-1.0); Calcium 9.3 mg/dL (8.6-10.3); Globulin 2.9 g/dL (2.4-3.5); Potassium 4.5 mEq/L (3.5-5.1); Total Protein 6.9 g/dL (6.4-8.9); Troponin I 0.03 ng/mL (< 0.04)
[2022-02-23 20:35] LABS: Adenovirus Not Detected (Not Detect); Bordetella Pertussis Not Detected (Not Detect); Coronavirus 229E Not Detected (Not Detect); Coronavirus HKU1 Not Detected (Not Detect); Coronavirus NL63 Not Detected (Not Detect); Coronavirus OC43 Not Detected (Not Detect); Human Metapneumovirus Not Detected (Not Detect); Human Rhinovirus/Enterovirus Not Detected (Not Detect); Influenza A Subtype 2009 H1 Not Detected (Not Detect); Influenza B Not Detected (Not Detect); Parainfluenza Virus 1 Not Detected (Not Detect); Parainfluenza Virus 2 Not Detected (Not Detect); Parainfluenza Virus 3 Not Detected (Not Detect); Parainfluenza Virus 4 Not Detected (Not Detect); Respiratory Syncytial Virus Not Detected (Not Detect); SARS-CoV-2 Not Detected (Not Detect)
[2022-02-23 20:36] LABS: Chlamydophila pneumoniae Not Detected (Not Detect); Mycoplasma pneumoniae Not Detected (Not Detect)
[2022-02-23] MEDS ORDERED: MethylPREDNISolone 40 MG/ML VIAL IVP ONE (20:49)
[2022-02-23] MEDS ORDERED: Ipratropium/Albuterol Neb 3 ML IH ONE (20:53)
[2022-02-23] MEDS ORDERED: Azithromycin 500 MG in 0.9 % Sodium Chloride 250 ML IVPB ONE (21:52)
[2022-02-23] MEDS ORDERED: Acetaminophen 325 MG TABLET PO PRN (23:17)
[2022-02-23] MEDS ORDERED: Naloxone 0.4 MG/ML INJ IVP PRN (23:17)
[2022-02-23] MEDS ORDERED: Ondansetron 4 MG/2 ML VIAL IVP PRN (23:17)
[2022-02-23] MEDS ORDERED: D5% in Water 1,000 ML IVC PRN (23:26)
[2022-02-23] MEDS ORDERED: *HR* Dextrose 50 % in Water (Syg) 50 ML SYRINGE IVP PRN (23:26)
[2022-02-23] MEDS ORDERED: Dextrose Gel 15 GM/37.5 ML TUBE PO PRN ×2 (23:26)
[2022-02-24 03:30] LABS: Hemoglobin 12.3 g/dL (12.9-16.9); Red Cell Distribution Width 16.8 % (11.5-14.5)
[2022-02-24 03:31] LABS: Nucleated Red Blood Cells 0.2 /100 WBC (0)
[2022-02-24 03:33] LABS: Basophils % 0.4 %; Eosinophils # 0.1 K/mcL (0.0-0.6); Immature Granulocytes % 0.8 % (0-4); Immature Platelets 7.3 % (1.1-6.1); Lymphocytes # 0.5 K/mcL (0.6-4.6); Lymphocytes % 5.6 %; Mean Corpuscular Hemoglobin 29.1 pg (28.0-33.3); Mean Corpuscular Volume 96.9 fL (83.0-100.0); Mean Platelet Volume 10.8 fL (9.4-12.4); Monocytes # 0.2 K/mcL (0.0-1.3); Monocytes % 2.6 %; Neutrophils # 7.5 K/mcL (1.6-8.9); Platelet Count 109 K/mcL (140-400); Red Blood Count 4.23 M/mcL (4.19-5.50); Segmented Neutrophils % 89.6 %; White Blood Count 8.4 K/mcL (4.3-11.1)
[2022-02-24 03:49] LABS: Bilirubin,Urine Negative (Negative); Blood,Urine Negative (Negative); Clarity,Urine Clear (Clear); Color,Urine Light-Yellow (Yellow); Glucose,Urine (UA) 50 mg/dL (Normal); Ketones,Urine Negative (Negative); Leukocyte Esterase,Urine Negative (Negative); Nitrite,Urine Negative (Negative); Protein,Urine >=300 mg/dL (Neg-Trace); Specific Gravity,Urine 1.026 (1.010-1.025); Squamous Epithelial Cell,Urine Few per hpf (None-Few); Urobilinogen,Urine Normal (Normal); WBC,Urine 0-3 per hpf (0-3)
[2022-02-24 03:59] LABS: Calcium 9.1 mg/dL (8.6-10.3); Magnesium 1.6 mg/dL (1.6-2.6); Potassium 4.2 mEq/L (3.5-5.1)
[2022-02-24 04:43] LABS: Estimated Average Glucose 154 mg/dl
[2022-02-24 04:55] LABS: ABG Base Excess 13 mEq/L (-2 to 3); ABG HCO3 43 mEq/L (21-27); ABG Oxygen Saturation 86 % (95-98); ABG PCO2 81 mmHg (35-45); ABG PH 7.33 pH Units (7.32-7.45); ABG PO2 58 mmHg (85-104); ABG TCO2 45 mEq/L (20-26); Blood Gas Modality BiLevel
[2022-02-24] MEDS: methylPREDNISolone 125 MG/2 ML VIAL IVP SCH ×2 (06:16→16:46)
[2022-02-24] MEDS: *HR* Heparin 5,000 UNIT/ML VIAL SQ SCH ×3 (06:16→20:41)
[2022-02-24] MEDS: cefTRIAXone 1,000 MG in 0.9 % Sodium Chloride Mini Bag 100 ML IVPB SCH (07:53)
[2022-02-24] MEDS: Azithromycin 500 MG in 0.9 % Sodium Chloride 250 ML IVPB SCH (07:54)
[2022-02-24] MEDS ORDERED: Ipratropium/Albuterol Neb 3 ML IH SCH (08:00)
[2022-02-24] MEDS: Insulin LISPRO 300 UNITS/3 ML VIAL SUBQ SCH ×3 (08:02→16:45)
[2022-02-24] MEDS: Nicotine 14 MG PATCH.TD24 TD SCH (09:59)
[2022-02-24] MEDS: Levalbuterol Neb 0.63 MG/3 ML IH SCH ×3 (11:27→22:38)
[2022-02-24] MEDS: Ipratropium Neb 0.5 MG NEBULIZER IH SCH ×3 (11:27→22:38)
[2022-02-24] MEDS ORDERED: Furosemide 40 MG TABLET PO SCH (15:00)
[2022-02-24] MEDS ORDERED: Insulin DETEMIR 100 UNIT/ML X5UNITS SUBQ SCH (21:00)
[2022-02-24] MEDS: Budesonide/Formoterol 160/4.5 1 PUFF INH IH SCH (22:38)
[2022-02-25] MEDS: Ipratropium Neb 0.5 MG NEBULIZER IH SCH ×4 (04:10→23:04)
[2022-02-25] MEDS: Levalbuterol Neb 0.63 MG/3 ML IH SCH ×4 (04:10→23:04)
[2022-02-25 05:14] LABS: Basophils % 0.1 %; Hemoglobin 11.4 g/dL (12.9-16.9); Immature Granulocytes % 0.6 % (0-4); Lymphocytes # 0.5 K/mcL (0.6-4.6); Lymphocytes % 7.4 %; Mean Corpuscular HGB Conc 31.7 g/dL (31.6-35.5); Mean Corpuscular Hemoglobin 29.2 pg (28.0-33.3); Mean Corpuscular Volume 92.1 fL (83.0-100.0); Mean Platelet Volume 11.3 fL (9.4-12.4); Monocytes # 0.2 K/mcL (0.0-1.3); Monocytes % 2.8 %; Neutrophils # 6.1 K/mcL (1.6-8.9); Nucleated Red Blood Cells 0.3 /100 WBC (0); Platelet Count 118 K/mcL (140-400); Red Blood Count 3.91 M/mcL (4.19-5.50); Red Cell Distribution Width 15.9 % (11.5-14.5); Segmented Neutrophils % 89.1 %; White Blood Count 6.8 K/mcL (4.3-11.1)
[2022-02-25 05:27] LABS: VBG HCO3 34 mEq/L (21-27); VBG PCO2 49 mmHg (41-51); VBG PH 7.45 pH Units (7.32-7.42); VBG PO2 134 mmHg (25-50)
[2022-02-25 05:30] LABS: Calcium 9.1 mg/dL (8.6-10.3); Magnesium 1.9 mg/dL (1.6-2.6); Phosphorous 2.6 mg/dL (2.7-4.5); Potassium 4.5 mEq/L (3.5-5.1)
[2022-02-25] MEDS: methylPREDNISolone 125 MG/2 ML VIAL IVP SCH (05:52)
[2022-02-25] MEDS: *HR* Heparin 5,000 UNIT/ML VIAL SQ SCH ×3 (05:53→22:21)
[2022-02-25] MEDS: cefTRIAXone 1,000 MG in 0.9 % Sodium Chloride Mini Bag 100 ML IVPB SCH (08:17)
[2022-02-25] MEDS: Insulin LISPRO 300 UNITS/3 ML VIAL SUBQ SCH ×3 (08:21→17:26)
[2022-02-25] MEDS: Aspirin Enteric Coated 81 MG Tablet PO SCH (08:39)
[2022-02-25] MEDS: amLODIPine 5 MG TABLET PO SCH (08:40)
[2022-02-25] MEDS: Nicotine 14 MG PATCH.TD24 TD SCH (08:40)
[2022-02-25] MEDS: Azithromycin 500 MG in 0.9 % Sodium Chloride 250 ML IVPB SCH (09:08)
[2022-02-25] MEDS: Budesonide/Formoterol 160/4.5 1 PUFF INH IH SCH ×2 (10:37→23:03)
[2022-02-25] MEDS: Magic Mouthwash 10 ML UD Cup PO SCH ×2 (11:44→18:24)
[2022-02-25] MEDS ORDERED: Insulin DETEMIR 100 UNIT/ML X5UNITS SUBQ SCH (21:00)
[2022-02-26 02:43] LABS: VBG HCO3 35 mEq/L (21-27); VBG PCO2 62 mmHg (41-51); VBG PH 7.36 pH Units (7.32-7.42); VBG PO2 96 mmHg (25-50)
[2022-02-26 02:47] LABS: Basophils % 0.3 %; Eosinophils % 0.4 %; Hematocrit 34.8 % (37.5-50.1); Hemoglobin 10.9 g/dL (12.9-16.9); Immature Granulocytes % 0.4 % (0-4); Lymphocytes # 1.2 K/mcL (0.6-4.6); Lymphocytes % 17.3 %; Mean Corpuscular HGB Conc 31.3 g/dL (31.6-35.5); Mean Corpuscular Hemoglobin 29.1 pg (28.0-33.3); Mean Platelet Volume 10.9 fL (9.4-12.4); Monocytes # 0.5 K/mcL (0.0-1.3); Monocytes % 7.1 %; Neutrophils # 5.2 K/mcL (1.6-8.9); Platelet Count 131 K/mcL (140-400); Red Blood Count 3.74 M/mcL (4.19-5.50); Red Cell Distribution Width 15.9 % (11.5-14.5); Segmented Neutrophils % 74.5 %; White Blood Count 6.9 K/mcL (4.3-11.1)
[2022-02-26 03:02] LABS: Calcium 9.2 mg/dL (8.6-10.3); Magnesium 1.9 mg/dL (1.6-2.6); Phosphorous 3.1 mg/dL (2.7-4.5)
[2022-02-26] MEDS: Levalbuterol Neb 0.63 MG/3 ML IH SCH ×3 (03:59→15:57)
[2022-02-26] MEDS: Ipratropium Neb 0.5 MG NEBULIZER IH SCH ×3 (03:59→15:57)
[2022-02-26] MEDS: *HR* Heparin 5,000 UNIT/ML VIAL SQ SCH ×2 (05:14→16:17)
[2022-02-26] MEDS: Insulin LISPRO 300 UNITS/3 ML VIAL SUBQ SCH ×2 (08:41→11:59)
[2022-02-26] MEDS: Aspirin Enteric Coated 81 MG Tablet PO SCH (08:50)
[2022-02-26] MEDS: Nicotine 14 MG PATCH.TD24 TD SCH (08:50)
[2022-02-26] MEDS: amLODIPine 5 MG TABLET PO SCH (08:50)
[2022-02-26] MEDS: Magic Mouthwash 10 ML UD Cup PO SCH ×3 (08:51→16:18)
[2022-02-26] MEDS: Azithromycin 500 MG in 0.9 % Sodium Chloride 250 ML IVPB SCH (08:51)
[2022-02-26] MEDS ORDERED: predniSONE 20 MG TABLET PO SCH (09:00)
[2022-02-26] MEDS: cefTRIAXone 1,000 MG in 0.9 % Sodium Chloride Mini Bag 100 ML IVPB SCH (10:23)
[2022-02-26] MEDS: Budesonide/Formoterol 160/4.5 1 PUFF INH IH SCH (10:27)
[2022-02-26 10:54] VITALS: BP 128/64; PULSE 85; TEMP 98.7
[2022-02-26 14:19] VITALS: O2SAT 95
[2022-02-26] MEDS ORDERED: Furosemide 40 MG/4 ML VIAL IVP SCH (14:45)
== END 2022-02-26 19:10 | disposition home or self-care (01) | DRG 193 ==
LOC: 2NENU 17:54 → EMEROOARM 17:54 → SUATTDRO 22:48 → 2NENU 23:29
PROVIDERS: ADMIT Internal Medicine; ATTEND Pharmacist

== ENCOUNTER 2022-03-26 20:45 | Inpatient (IN) ==
[2022-03-26 21:11] LABS: Basophils % 0.4 %; Eosinophils # 0.2 K/mcL (0.0-0.6); Eosinophils % 2.1 %; Hemoglobin 12.3 g/dL (12.9-16.9); Immature Granulocytes % 0.4 % (0-4); Lymphocytes # 1.3 K/mcL (0.6-4.6); Lymphocytes % 18.6 %; Mean Corpuscular HGB Conc 30.8 g/dL (31.6-35.5); Mean Corpuscular Hemoglobin 29.9 pg (28.0-33.3); Mean Corpuscular Volume 97.1 fL (83.0-100.0); Mean Platelet Volume 10.5 fL (9.4-12.4); Monocytes # 0.7 K/mcL (0.0-1.3); Monocytes % 9.7 %; Platelet Count 153 K/mcL (140-400); Red Blood Count 4.12 M/mcL (4.19-5.50); Red Cell Distribution Width 16.1 % (11.5-14.5); Segmented Neutrophils % 68.8 %; White Blood Count 7.2 K/mcL (4.3-11.1)
[2022-03-26 21:34] LABS: Calcium 9.1 mg/dL (8.6-10.3); Magnesium 1.6 mg/dL (1.6-2.6); Potassium 4.5 mEq/L (3.5-5.1); Troponin I 0.03 ng/mL (< 0.04)
[2022-03-26 21:36] LABS: VBG HCO3 45 mEq/L (21-27); VBG PCO2 98 mmHg (41-51); VBG PH 7.27 pH Units (7.32-7.42); VBG PO2 39 mmHg (25-50)
[2022-03-26 22:02] LABS: Influenza A PCR Negative (Negative); Influenza B PCR Negative (Negative); Resp. Syncytial Virus PCR Negative (Negative)
[2022-03-26 22:04] LABS: SARS-CoV-2 by PCR (In House) Negative (Negative)
[2022-03-26] MEDS ORDERED: methylPREDNISolone 125 MG/2 ML VIAL IVP ONE (22:15)
[2022-03-26] MEDS ORDERED: Furosemide 40 MG/4 ML VIAL IVP ONE (23:00)
[2022-03-27 00:24] LABS: VBG HCO3 46 mEq/L (21-27); VBG PCO2 101 mmHg (41-51); VBG PH 7.27 pH Units (7.32-7.42); VBG PO2 53 mmHg (25-50)
[2022-03-27 02:05] LABS: VBG HCO3 47 mEq/L (21-27); VBG PCO2 93 mmHg (41-51); VBG PH 7.31 pH Units (7.32-7.42); VBG PO2 63 mmHg (25-50)
[2022-03-27] MEDS ORDERED: Naloxone 0.4 MG/ML INJ IVP PRN (02:29)
[2022-03-27] MEDS ORDERED: Ondansetron ODT 4 MG TAB.RAPDIS SL PRN (02:29)
[2022-03-27] MEDS ORDERED: Dextrose Gel 15 GM/37.5 ML TUBE PO PRN ×2 (03:20)
[2022-03-27] MEDS ORDERED: *HR* Dextrose 50 % in Water (Syg) 50 ML SYRINGE IVP PRN (03:20)
[2022-03-27] MEDS ORDERED: D5% in Water 1,000 ML IVC PRN (03:20)
[2022-03-27] MEDS: Ipratropium/Albuterol Neb 3 ML IH SCH ×5 (04:55→20:22)
[2022-03-27 05:20] LABS: VBG HCO3 48 mEq/L (21-27); VBG PCO2 88 mmHg (41-51); VBG PH 7.34 pH Units (7.32-7.42); VBG PO2 52 mmHg (25-50)
[2022-03-27 05:21] LABS: Hematocrit 38.5 % (37.5-50.1); Hemoglobin 12.1 g/dL (12.9-16.9); Immature Platelets 5.7 % (1.1-6.1); Mean Corpuscular HGB Conc 31.4 g/dL (31.6-35.5); Mean Corpuscular Hemoglobin 29.8 pg (28.0-33.3); Mean Corpuscular Volume 94.8 fL (83.0-100.0); Mean Platelet Volume 10.2 fL (9.4-12.4); Red Blood Count 4.06 M/mcL (4.19-5.50); Red Cell Distribution Width 15.8 % (11.5-14.5); White Blood Count 6.3 K/mcL (4.3-11.1)
[2022-03-27 05:33] LABS: BUN/Creatinine Ratio 21 (6-26); Blood Urea Nitrogen 34 mg/dL (8-23); Calcium 9.2 mg/dL (8.6-10.3); Carbon Dioxide > 45 mEq/L (23-29); Chloride 92 mEq/L (98-107); Glucose 134 mg/dL (70-105); Osmolality,Calculated 306 (280-300); Potassium 4.6 mEq/L (3.5-5.1); Sodium 143 mEq/L (136-145)
[2022-03-27] MEDS: *HR* Heparin 5,000 UNIT/ML VIAL SQ SCH ×3 (07:52→21:21)
[2022-03-27] MEDS: Budesonide/Formoterol 160/4.5 1 PUFF INH IH SCH ×2 (07:58→20:22)
[2022-03-27] MEDS: Insulin LISPRO 300 UNITS/3 ML VIAL SUBQ SCH ×3 (10:06→17:48)
[2022-03-27] MEDS: Furosemide 40 MG/4 ML VIAL IVP SCH ×2 (10:10→21:20)
[2022-03-27] MEDS: MethylPREDNISolone 40 MG/ML VIAL IVP SCH ×2 (10:16→17:47)
[2022-03-27 13:48] LABS: Sodium, Urine 119.9 mEq/L
[2022-03-27] MEDS: Melatonin 3 MG TABLET PO PRN (21:20)
[2022-03-27] MEDS ORDERED: Insulin LISPRO 300 UNITS/3 ML VIAL SUBQ ONE (21:30)
[2022-03-27] MEDS: Insulin DETEMIR 100 UNIT/ML X5UNITS SUBQ SCH (22:04)
[2022-03-28] MEDS: Ipratropium/Albuterol Neb 3 ML IH SCH ×7 (00:14→23:00)
[2022-03-28] MEDS: Insulin LISPRO 300 UNITS/3 ML VIAL SUBQ SCH ×5 (00:30→20:32)
[2022-03-28] MEDS: MethylPREDNISolone 40 MG/ML VIAL IVP SCH ×3 (00:30→17:13)
[2022-03-28] MEDS: *HR* Heparin 5,000 UNIT/ML VIAL SQ SCH ×3 (05:23→20:32)
[2022-03-28] MEDS: Budesonide/Formoterol 160/4.5 1 PUFF INH IH SCH ×2 (07:19→20:20)
[2022-03-28] MEDS: Furosemide 40 MG/4 ML VIAL IVP SCH ×2 (08:27→20:33)
[2022-03-28 13:16] LABS: Basophils % 0.1 %; Hematocrit 37.4 % (37.5-50.1); Hemoglobin 11.8 g/dL (12.9-16.9); Immature Granulocytes % 0.4 % (0-4); Lymphocytes # 0.2 K/mcL (0.6-4.6); Lymphocytes % 2.9 %; Mean Corpuscular HGB Conc 31.6 g/dL (31.6-35.5); Mean Corpuscular Hemoglobin 29.6 pg (28.0-33.3); Mean Platelet Volume 10.6 fL (9.4-12.4); Monocytes # 0.2 K/mcL (0.0-1.3); Monocytes % 2.3 %; Neutrophils # 6.5 K/mcL (1.6-8.9); Platelet Count 156 K/mcL (140-400); Red Blood Count 3.98 M/mcL (4.19-5.50); Red Cell Distribution Width 15.1 % (11.5-14.5); Segmented Neutrophils % 94.3 %; White Blood Count 6.9 K/mcL (4.3-11.1)
[2022-03-28 13:32] LABS: Calcium 9.3 mg/dL (8.6-10.3); Potassium 3.8 mEq/L (3.5-5.1)
[2022-03-28] MEDS: Insulin DETEMIR 100 UNIT/ML X5UNITS SUBQ SCH (20:32)
[2022-03-28] MEDS: Melatonin 3 MG TABLET PO PRN (22:36)
[2022-03-29] MEDS: MethylPREDNISolone 40 MG/ML VIAL IVP SCH ×4 (00:41→17:05)
[2022-03-29 02:02] LABS: Basophils % 0.1 %; Hemoglobin 10.8 g/dL (12.9-16.9); Immature Granulocytes % 1.3 % (0-4); Lymphocytes # 0.4 K/mcL (0.6-4.6); Lymphocytes % 5.2 %; Mean Corpuscular HGB Conc 31.8 g/dL (31.6-35.5); Mean Corpuscular Hemoglobin 29.3 pg (28.0-33.3); Mean Corpuscular Volume 92.4 fL (83.0-100.0); Mean Platelet Volume 10.6 fL (9.4-12.4); Monocytes # 0.5 K/mcL (0.0-1.3); Monocytes % 5.7 %; Nucleated Red Blood Cells 0.3 /100 WBC (0); Platelet Count 170 K/mcL (140-400); Red Blood Count 3.68 M/mcL (4.19-5.50); Red Cell Distribution Width 15.1 % (11.5-14.5); Segmented Neutrophils % 87.7 %
[2022-03-29 02:12] LABS: Calcium 9.3 mg/dL (8.6-10.3); Potassium 4.3 mEq/L (3.5-5.1)
[2022-03-29] MEDS: Ipratropium/Albuterol Neb 3 ML IH SCH ×6 (03:33→23:08)
[2022-03-29] MEDS: *HR* Heparin 5,000 UNIT/ML VIAL SQ SCH ×3 (04:23→21:08)
[2022-03-29] MEDS: Budesonide/Formoterol 160/4.5 1 PUFF INH IH SCH ×2 (07:43→19:48)
[2022-03-29] MEDS: Insulin LISPRO 300 UNITS/3 ML VIAL SUBQ SCH ×4 (09:07→21:09)
[2022-03-29] MEDS: Furosemide 40 MG/4 ML VIAL IVP SCH ×3 (09:54→21:08)
[2022-03-29] MEDS: Melatonin 3 MG TABLET PO PRN (21:08)
[2022-03-29] MEDS: Insulin DETEMIR 100 UNIT/ML X5UNITS SUBQ SCH (21:14)
[2022-03-30] MEDS: MethylPREDNISolone 40 MG/ML VIAL IVP SCH ×4 (00:02→20:50)
[2022-03-30] MEDS: Ipratropium/Albuterol Neb 3 ML IH SCH ×5 (03:50→20:02)
[2022-03-30] MEDS: *HR* Heparin 5,000 UNIT/ML VIAL SQ SCH ×3 (06:05→20:55)
[2022-03-30 06:10] LABS: Basophils % 0.1 %; Immature Granulocytes % 1.6 % (0-4); Lymphocytes # 0.4 K/mcL (0.6-4.6); Lymphocytes % 4.6 %; Mean Corpuscular HGB Conc 32.3 g/dL (31.6-35.5); Mean Corpuscular Hemoglobin 29.3 pg (28.0-33.3); Mean Corpuscular Volume 90.9 fL (83.0-100.0); Mean Platelet Volume 10.3 fL (9.4-12.4); Monocytes # 0.2 K/mcL (0.0-1.3); Monocytes % 2.2 %; Nucleated Red Blood Cells 0.3 /100 WBC (0); Platelet Count 204 K/mcL (140-400); Segmented Neutrophils % 91.5 %; White Blood Count 7.6 K/mcL (4.3-11.1)
[2022-03-30 06:14] LABS: Hemoglobin 12.9 g/dL (12.9-16.9)
[2022-03-30 06:25] LABS: Calcium 9.7 mg/dL (8.6-10.3); Potassium 4.2 mEq/L (3.5-5.1)
[2022-03-30] MEDS: Budesonide/Formoterol 160/4.5 1 PUFF INH IH SCH ×2 (07:40→20:02)
[2022-03-30] MEDS: Aspirin Enteric Coated 81 MG Tablet PO SCH (10:21)
[2022-03-30] MEDS: amLODIPine 5 MG TABLET PO SCH (10:22)
[2022-03-30] MEDS: Furosemide 40 MG/4 ML VIAL IVP SCH ×2 (10:22→20:56)
[2022-03-30] MEDS: Insulin LISPRO 300 UNITS/3 ML VIAL SUBQ SCH ×4 (10:23→20:53)
[2022-03-30] MEDS: Melatonin 3 MG TABLET PO PRN (20:50)
[2022-03-30] MEDS: Pregabalin 75 MG CAPSULE PO SCH (20:51)
[2022-03-30] MEDS ORDERED: Insulin DETEMIR 100 UNIT/ML X5UNITS SUBQ SCH (21:00)
[2022-03-31] MEDS: Ipratropium/Albuterol Neb 3 ML IH SCH ×5 (00:14→15:20)
[2022-03-31 01:46] LABS: Basophils % 0.3 %; Hematocrit 38.4 % (37.5-50.1); Hemoglobin 12.7 g/dL (12.9-16.9); Immature Granulocytes % 2.8 % (0-4); Lymphocytes # 0.4 K/mcL (0.6-4.6); Lymphocytes % 4.4 %; Mean Corpuscular HGB Conc 33.1 g/dL (31.6-35.5); Mean Corpuscular Hemoglobin 30.2 pg (28.0-33.3); Mean Corpuscular Volume 91.2 fL (83.0-100.0); Mean Platelet Volume 10.4 fL (9.4-12.4); Monocytes # 0.4 K/mcL (0.0-1.3); Monocytes % 4.3 %; Neutrophils # 7.7 K/mcL (1.6-8.9); Nucleated Red Blood Cells 0.2 /100 WBC (0); Platelet Count 197 K/mcL (140-400); Red Blood Count 4.21 M/mcL (4.19-5.50); Segmented Neutrophils % 88.2 %; White Blood Count 8.7 K/mcL (4.3-11.1)
[2022-03-31 02:05] LABS: Calcium 9.7 mg/dL (8.6-10.3); Potassium 4.5 mEq/L (3.5-5.1)
[2022-03-31] MEDS: *HR* Heparin 5,000 UNIT/ML VIAL SQ SCH ×2 (05:10→14:21)
[2022-03-31] MEDS: Budesonide/Formoterol 160/4.5 1 PUFF INH IH SCH (07:37)
[2022-03-31] MEDS: Insulin LISPRO 300 UNITS/3 ML VIAL SUBQ SCH ×2 (08:08→12:22)
[2022-03-31] MEDS: Furosemide 40 MG/4 ML VIAL IVP SCH (08:08)
[2022-03-31] MEDS: MethylPREDNISolone 40 MG/ML VIAL IVP SCH (08:08)
[2022-03-31] MEDS: amLODIPine 5 MG TABLET PO SCH (08:09)
[2022-03-31] MEDS: Aspirin Enteric Coated 81 MG Tablet PO SCH (08:09)
[2022-03-31] MEDS: Pregabalin 75 MG CAPSULE PO SCH (08:09)
[2022-03-31 10:59] VITALS: BP 133/84; PULSE 82; TEMP 97.9
[2022-03-31 16:47] VITALS: O2SAT 93
== END 2022-03-31 16:40 | disposition home or self-care (01) | DRG 291 ==
LOC: 3NENU 20:45 → EMEROOARM 20:45 → SUATTDRO 03-27 02:28 → 3NENU 03-27 04:26
PROVIDERS: ADMIT Internal Medicine; ATTEND Internal Medicine